=== PATIENT | female | born 1935 | race Native Hawaiian/Other Pacific Islander ===

== ENCOUNTER 2017-10-18 12:41 | Observation (INO) | payer OTHER ==
[2017-10-18] MEDS ORDERED: Sodium Chloride 0.9% 1,000 ML IV ONE (13:27)
[2017-10-18 14:40] LABS: BASO # 0.1 K/uL (0.0-0.2); BASO % 0.6 % (0.0-2.0); EOS # 0.1 K/uL (0.0-0.7); EOS % 0.9 % (0.0-4.0); HEMOGLOBIN 14.6 g/dL (11.0-16.0); LYMPH # 1.3 K/uL (1.0-4.3); LYMPH % 14.5 % (20.0-40.0); MEAN CELL VOLUME 98.5 fL (81.0-99.0); MEAN CORPUSCULAR HGB CONC 33.5 g/dL (33.0-37.0); MEAN PLATELET VOLUME 9.4 fL (7.2-11.7); MONO # 0.6 K/uL (0.0-0.8); MONO % 7.2 % (0.0-10.0); NEUT # 6.9 K/uL (1.8-7.0); NEUT % 76.8 % (50.0-75.0); RBC 4.41 Mil/uL (3.80-5.20); RED CELL DISTRIBUTION WIDTH 15.1 % (11.5-14.5); WHITE BLOOD COUNT 8.9 K/uL (4.8-10.8)
[2017-10-18] MEDS ORDERED: Sodium Chloride 0.9% 1,000 ML ONE (14:43)
[2017-10-18 14:46] LABS: VENOUS BLOOD GAS BASE EXCESS -1.8 mmol/L (0.0-2.0); VENOUS BLOOD GAS PCO2 42 mmHg (40-60); VENOUS BLOOD GAS PO2 29 mm/Hg (30-55); VENOUS BLOOD PH 7.36 (7.32-7.43)
[2017-10-18 14:47] LABS: INR 0.8; PROTHROMBIN TIME 9.3 SECONDS (9.7-12.2)
[2017-10-18 14:57] LABS: ALB/GLOB RATIO 1.2 (1.0-2.1); ALBUMIN 3.9 g/dL (3.5-5.0); ALT/SGPT 38 U/L (9-52); AST/SGOT 53 U/L (14-36); BLOOD UREA NITROGEN 33 mg/dL (7-17); CALCIUM 9.9 mg/dl (8.6-10.4); GFR AFRICAN-AMERICAN > 60; GFR NON-AFRICAN AMERICAN 53; MAGNESIUM 1.6 mg/dL (1.6-2.3)
--- NOTE | 2017-10-18 15:41 | C.PDOC ---
History Of Present Illness 82 year old female with a history of Diabetes-IDDM and HTN was sent to ED from PMD's office for evaluation of high blood sugar at approximately 400. Patient reports she has high blood sugar at home for the last week. Patient denies any fever, weakness, numbness, headache, dizziness, or any physical complaints at this time. Time Seen by Provider: 10/18/17 13:01 Chief Complaint (Nursing): High Blood Sugar History Per: Patient History/Exam Limitations: no limitations Onset/Duration Of Symptoms: Hrs Current Symptoms Are (Timing): Still Present Current Diabetic Medications: Insulin Associated Infectious Symptoms: denies: Vomiting, Diarrhea Recent travel outside of the [place]: No Past Medical History Reviewed: Historical Data, Nursing Documentation, Vital Signs Vital Signs: Last Vital Signs Temp 98 F 10/18/17 12:54 Pulse 90 10/18/17 15:34 Resp 13 10/18/17 15:34 BP 141/71 10/18/17 15:34 Pulse Ox 100 10/18/17 15:47 - Medical History PMH: HTN Family History: States: Unknown Family Hx - Social History Hx Alcohol Use: No Hx Substance Use: No - Immunization History Hx Tetanus Toxoid Vaccination: No Hx Influenza Vaccination: No Hx Pneumococcal Vaccination: No Review Of Systems Constitutional: Negative for: Fever, Chills Cardiovascular: Negative for: Chest Pain, Palpitations Respiratory: Negative for: Cough, Shortness of Breath Gastrointestinal: Negative for: Nausea, Vomiting, Abdominal Pain, Diarrhea Neurological: Negative for: Weakness, Numbness, Headache, Dizziness Physical Exam - Physical Exam Appears: Non-toxic, No Acute Distress Skin: Warm, Dry, No Rash Head: Atraumatic, Normacephalic, No Tenderness Eye(s): bilateral: Normal Inspection, PERRL, EOMI Oral Mucosa: Moist Neck: Supple Chest: Symmetrical, No Deformity Cardiovascular: Rhythm Regular, No Murmur Respiratory: No Rales, No Rhonchi, No Wheezing, Other (clear to auscultation bilaterally ) Gastrointestinal/Abdominal: Soft, No Tenderness, No Distention, No Guarding, No Rebound Extremity: Normal ROM, No Tenderness Neurological/Psych: Oriented x3 ED Course And Treatment - Laboratory Results Result Diagrams: 10/18/17 14:34 10/18/17 14:34 O2 Sat by Pulse Oximetry: 100 (RA) Pulse Ox Interpretation: Normal Progress Note: VBG, EKG, blood work, and labs were ordered. Patient was given IV fluids. Medical Decision Making Medical Decision Making: r/o dka 300: no e/o of dka. case discussed with pmd dr irwin. specifically requests admission of ivf, reports he discussed with dr hennessy. accepted for admission. Disposition - Disposition Disposition: HOSPITALIZED Disposition Time: 04:00 Condition: STABLE - Clinical Impression Clinical Impression: Hyperglycemia, Dehydration - Scribe Statement The provider has reviewed the documentation as recorded by the Scribe Dejah Jessica All medical record entries made by the Scribe were at my direction and personally dictated by me. I have reviewed the chart and agree that the record accurately reflects my personal performance of the history, physical exam, medical decision making, and the department course for this patient. I have also personally directed, reviewed, and agree with the discharge instructions and disposition. Decision To Admit - Pt Status Changed To: Hospital Disposition Of: Observation - . Bed Request Type: Telemetry Admitting Physician: Lulu Craig Patient Diagnosis: Hyperglycemia, Dehydration
--- NOTE | 2017-10-18 16:20 | CP.PCM.HP ---
<Francisco Nascimento - Last Filed: 10/18/17 16:55> History of Present Illness - History of Present Illness History of Present Illness: CC: sent by PMD HPI: [id number] PMHx DM, HTN, kidney infection and HLD was sent by PMD for hyperglycemia. Pt reports for the past week her morning fasting sugar is around 300-400. Pt said she is urinating more than usual but does not feel thirsty all the time or drinks more water than usual. Pt denied any pain, SOB, n/v, fever, chills, numbness, tingling. Pt reports previous A1c last month of 7. Pt said her last medication change was Amaryl 4 months ago. Pt said she is taking medication as prescribed. Pt also see ophthamologist and paving rammer. PMHx: as above PSHx: none FMHx: brother and sister have DM Social: denied ETOH, drugs or tobacco. Drinks 1 cup of coffee in the morning. 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 PMD: Danay Present on Admission - Present on Admission Any Indicators Present on Admission: Yes History of Uncontrolled Diabetes: Yes Review of Systems - Constitutional Constitutional: absent: Anorexia, Chills, Weakness - EENT Eyes: Blurred Vision (chronic) Ears: absent: Dizziness - Cardiovascular Cardiovascular: absent: Chest Pain, Dyspnea, Edema, Leg Edema, Leg Ulcers - Respiratory Respiratory: absent: Cough, Dyspnea - Gastrointestinal Gastrointestinal: absent: Abdominal Pain, Constipation, Dyspepsia, Nausea, Vomiting - Genitourinary Genitourinary: Urinary Frequency - Musculoskeletal Musculoskeletal: absent: Numbness - Integumentary Integumentary: absent: Dry Skin - Neurological Neurological: absent: Abnormal Hearing - Psychiatric Psychiatric: absent: Anxiety Past Patient History - Past Social History Smoking Status: Never Smoked - CARDIAC Hx Hypertension: Yes - ENDOCRINE/METABOLIC Hx Diabetes Mellitus Type 2: Yes - PSYCHIATRIC Hx Substance Use: No - SURGICAL HISTORY Hx Surgeries: No Meds Allergies/Adverse Reactions: Allergies Allergy/AdvReac Type Severity Reaction Status Date / Time No Known Allergies Allergy Verified 10/18/17 13:21 Physical Exam - Constitutional Appears: Non-toxic, No Acute Distress - Head Exam Head Exam: NORMAL INSPECTION, NORMOCEPHALIC - Eye Exam Eye Exam: Normal appearance Pupil Exam: NORMAL ACCOMODATION - ENT Exam ENT Exam: Mucous Membranes Moist - Respiratory Exam Respiratory Exam: Clear to Auscultation Bilateral, NORMAL BREATHING PATTERN. absent: Rhonchi, Wheezes - Cardiovascular Exam Cardiovascular Exam: REGULAR RHYTHM, +S1, +S2. absent: Gallop, Rubs - GI/Abdominal Exam GI & Abdominal Exam: Normal Bowel Sounds, Soft. absent: Tenderness - Extremities Exam Extremities exam: Negative for: pedal edema - Neurological Exam Neurological exam: Alert, Oriented x3 - Psychiatric Exam Psychiatric exam: Normal Mood - Skin Skin Exam: Intact Results - Vital Signs Recent Vital Signs: Last Vital Signs Temp 98 F 10/18/17 12:54 Pulse 90 10/18/17 15:34 Resp 13 10/18/17 15:34 BP 141/71 10/18/17 15:34 Pulse Ox 100 10/18/17 15:47 - Labs Result Diagrams: 10/18/17 14:34 10/18/17 14:34 Labs: Laboratory Results - last 24 hr 10/18/17 10/18/17 10/18/17 14:34 14:34 14:34 WBC 8.9 RBC 4.41 Hgb 14.6 Hct 43.4 MCV 98.5 MCH 33.0 H MCHC 33.5 RDW 15.1 H Plt Count 152 MPV 9.4 Neut % (Auto) 76.8 H Lymph % (Auto) 14.5 L [place] % (Auto) 7.2 Eos % (Auto) 0.9 Baso % (Auto) 0.6 Neut # 6.9 Lymph # 1.3 [place] # 0.6 Eos # 0.1 Baso # 0.1 PT 9.3 L INR 0.8 APTT 27 pO2 VBG pH VBG pCO2 VBG HCO3 VBG Total CO2 VBG O2 Sat (Calc) VBG Base Excess VBG Potassium Glucose Lactate Sodium 134 Potassium 3.9 Chloride 101 Carbon Dioxide 24 Anion Gap 14 BUN 33 H Creatinine 1.0 Est GFR ( Amer) > 60 Est GFR (Non-Af Amer) 53 Random Glucose 337 H Calcium 9.9 Magnesium 1.6 Total Bilirubin 0.6 AST 53 H ALT 38 Alkaline Phosphatase 96 Troponin I 0.0240 Total Protein 7.3 Albumin 3.9 Globulin 3.4 Albumin/Globulin Ratio 1.2 Venous Blood Potassium Serum Ketones Negative 10/18/17 14:42 WBC RBC Hgb Hct MCV MCH MCHC RDW Plt Count MPV Neut % (Auto) Lymph % (Auto) [place] % (Auto) Eos % (Auto) Baso % (Auto) Neut # Lymph # [place] # Eos # Baso # PT INR APTT pO2 29 L VBG pH 7.36 VBG pCO2 42 VBG HCO3 22.3 VBG Total CO2 25.0 VBG O2 Sat (Calc) 60.6 VBG Base Excess -1.8 L VBG Potassium 3.9 Glucose 358 H Lactate 1.3 Sodium 135.0 Potassium Chloride 105.0 Carbon Dioxide Anion Gap BUN Creatinine Est GFR ( Amer) Est GFR (Non-Af Amer) Random Glucose Calcium Magnesium Total Bilirubin AST ALT Alkaline Phosphatase Troponin I Total Protein Albumin Globulin Albumin/Globulin Ratio Venous Blood Potassium 3.9 Serum Ketones Assessment & Plan - Assessment and Plan (Free Text) Assessment: Hyperglycemia Pt takes Janumet 50-1000mg BID and Amaryl 4mg PO BID at home, confirmed with pharmacy ([facility] in [place]). Accucheck and RISS ACHS. Start Lantus 10U HS. Continue Janumet, will hold Amaryl. Salvage Mend Worker Dr. Chambers consulted, help appreciated. F/U A1c. HTN Continue HCTZ 12.5mg PO daily, Coreg 25mg PO BID, Amlopdipine 5mg PO daily. HLD Continue Lipitor 20mg PO daily. F/U lipid panel. Prophylactic measure SCD, Pepcid. <Sreekanth Alberto - Last Filed: 10/27/17 14:18> Results - Vital Signs Recent Vital Signs: Last Vital Signs Temp 97.4 F L 10/20/17 08:22 Pulse 80 10/20/17 08:22 Resp 20 10/20/17 08:22 BP 113/73 10/20/17 08:22 Pulse Ox 96 10/20/17 08:22 - Labs Result Diagrams: 10/20/17 08:27 10/20/17 08:27 Attending/Attestation - Attestation I have personally seen and examined this patient.: Yes I have fully participated in the care of the patient.: Yes I have reviewed all pertinent clinical information: Yes Notes (Text): Hyperglycemia with uncontrolled DM-2 Not in DKA add lantus consult Endocrine Dr. CHAMBERS
[2017-10-18 18:29] LABS: HDL CHOLESTEROL 55 mg/dL (30-70)
[2017-10-18 18:40] LABS: LDL CHOLESTEROL 85 mg/dL (0-129)
[2017-10-18 21:30] LABS: URINE BACTERIA FEW (<OCC); URINE BILIRUBIN NEGATIVE (NEGATIVE); URINE BLOOD NEGATIVE (NEGATIVE); URINE CLARITY Clear (Clear); URINE COLOR Yellow (YELLOW); URINE GLUCOSE (UA) 3+ mg/dL (Normal); URINE LEUKOCYTE ESTERASE TRACE Leu/uL (Negative); URINE NITRATE NEGATIVE (NEGATIVE); URINE PROTEIN NEGATIVE (NEGATIVE); URINE UROBILINOGEN NORMAL mg/dL (0.2-1.0)
[2017-10-18] MEDS ORDERED: (Lantus) Insulin Glargine, Recombinant SC SCH (22:00)
[2017-10-18] MEDS: Sodium Chloride 0.45% 1,000 ML IV SCH (23:28)
[2017-10-19 01:33] VITALS: RESP 20
--- NOTE | 2017-10-19 01:55 | CON ---
ENDOCRINOLOGY CONSULTATION LOCATION: Room #365B. HISTORY OF PRESENT ILLNESS: This is an 82-year-old female with known history of type 2 diabetes, on a combination of oral hypoglycemic therapy and was sent here by her primary physician because of recent marked hyperglycemic accelerations and glucose values in the 300 to 400 range and is now being referred for diabetic evaluation and management. PAST MEDICAL HISTORY: As mentioned above, history of type 2 diabetes, on a combination of Amaryl given as 4 mg b.i.d. and Janumet given as 51,000 b.i.d., history of hypertension and dyslipidemia. FAMILY HISTORY: Positive for diabetes and hypertension. SOCIAL HISTORY: The patient has a supportive family. No known substance use. REVIEW OF SYSTEMS: As mentioned above, admits to episodic bouts of dizziness and lightheadedness, worse in the last 2 to 3 days prior to admission with generalized body weakness, easy fatigability, tiredness and increasing hypersomnolence and lethargy. No chest pains, palpitations, or PNDs. The oral intake has been variable with occasional bouts of dyspepsia and nausea with vague upper abdominal pains. Also admits to marked polyuria, nocturia, and polydipsia on about a 5-pound or so weight loss. PHYSICAL EXAMINATION GENERAL: This is an female, in no apparent distress. VITAL SIGNS: Blood pressure of 140/80; pulse of 70 beats per minute and regular; temperature 98, respirations 20, height is 5 feet 4 inches and weight is 111 pounds. HEENT: Head is normocephalic. Eyes are anicteric with pink conjunctivae. Funduscopy not possible at this time. Ears, nose, and throat otherwise normal. NECK: Supple. Thyroid gland is normal in size. No carotid bruits or any cervical adenopathy. CARDIOPULMONARY: Adynamic pericardium. S1 and S2 is rapid and regular. LUNGS: Show scattered rhonchi. ABDOMEN: Flat and soft with positive bowel sounds. EXTREMITIES: No peripheral edema. Pulses are +2 bilaterally. LABORATORY DATA: The chemistries showed a BUN of 33, sodium 134, potassium 3.9, chloride 101, CO2 of 24, glucose 337, and creatinine 1.0. Her hemoglobin A1c is 9.8% and random glucose of 337 mg/dL. 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 PLAN OF MANAGEMENT: As discussed, the patient's staff will start her on a low dose basal and bolus insulin regimen and give NovoLog at 6 units subcu t.i.d. before meals to start tomorrow morning as ordered. We will also increase the Lantus to 12 units subcu at bedtime daily to start tonight. We will modify the coverage scale to obviate hypoglycemia and detailed orders have been given. We will discontinue her metformin at this time, especially with advanced age of the patient and also impaired GFR with seemingly normal creatinine levels as noted. Moreover, with weight loss and undernutrition status of the patient, metformin will contribute to progressively worsening weight loss thereof. We will obtain serial chemistries and supplement accordingly as needed. We will also initiate IV hydration because of the presence of prerenal azotemia and expected supervening increased osmotic diuresis from the marked hyperglycemic accelerations thereof. We will follow. Ingrid Gauthier MD
[2017-10-19] MEDS ORDERED: (Novolog) Insulin Aspart, Recombinant 100 u/ml 10 ml vial SC SCH (07:30)
[2017-10-19] MEDS: (Novolog) Insulin Aspart, Recombinant 100 u/ml 10 ml vial SC SCH ×5 (07:51→21:28)
[2017-10-19 08:39] LABS: BASO # 0.1 K/uL (0.0-0.2); BASO % 0.7 % (0.0-2.0); EOS # 0.1 K/uL (0.0-0.7); EOS % 1.3 % (0.0-4.0); LYMPH # 1.6 K/uL (1.0-4.3); LYMPH % 18.4 % (20.0-40.0); MEAN CELL VOLUME 99.1 fL (81.0-99.0); MEAN CORPUSCULAR HEMOGLOBIN 33.1 pg (27.0-31.0); MEAN CORPUSCULAR HGB CONC 33.4 g/dL (33.0-37.0); MEAN PLATELET VOLUME 9.2 fL (7.2-11.7); MONO # 0.8 K/uL (0.0-0.8); MONO % 9.1 % (0.0-10.0); NEUT # 6.1 K/uL (1.8-7.0); NEUT % 70.5 % (50.0-75.0); NRBC % 0.1 % (0.0-2.0); RBC 4.24 Mil/uL (3.80-5.20); RED CELL DISTRIBUTION WIDTH 14.9 % (11.5-14.5); WHITE BLOOD COUNT 8.6 K/uL (4.8-10.8)
[2017-10-19 09:18] LABS: ALB/GLOB RATIO 1.6 (1.0-2.1); ALBUMIN 3.3 g/dL (3.5-5.0); ALT/SGPT 39 U/L (9-52); AST/SGOT 32 U/L (14-36); BLOOD UREA NITROGEN 21 mg/dL (7-17); CALCIUM 9.1 mg/dl (8.6-10.4); GFR AFRICAN-AMERICAN > 60; GFR NON-AFRICAN AMERICAN > 60
[2017-10-19] MEDS ORDERED: Potassium Chloride 20 mEq ER Tab PO ONE (10:07)
--- NOTE | 2017-10-19 10:10 | CP.PCM.PN ---
Objective - Vital Signs/Intake and Output Vital Signs (last 24 hours): Temp Pulse Resp BP Pulse Ox 98.1 F 68 20 129/68 98 10/19/17 07:46 10/19/17 07:46 10/19/17 07:46 10/19/17 07:46 10/19/17 07:46 Intake and Output: 10/19/17 10/19/17 06:59 18:59 Intake Total 760 Balance 760 - Medications Medications: Current Medications Carvedilol (Coreg) 25 mg PO BID [facility] Last Admin: 10/18/17 18:46 Dose: 25 mg Enoxaparin Sodium (Lovenox) 40 mg SC DAILY [facility] Famotidine (Pepcid) 20 mg PO BID [facility] Last Admin: 10/18/17 18:47 Dose: 20 mg Hydrochlorothiazide (Microzide) 12.5 mg PO DAILY [facility] Sodium Chloride (Sodium Chloride 0.45%) 1,000 mls @ 80 mls/hr IV .[id number] [facility] Last Admin: 10/18/17 23:28 Dose: 80 mls/hr Insulin Aspart (Novolog) 0 unit SC ACHS [facility] PRN Reason: Protocol Last Admin: 10/19/17 07:51 Dose: Not Given Insulin Aspart (Novolog) 6 unit SC AC [facility] Last Admin: 10/19/17 07:51 Dose: Not Given Insulin Glargine (Lantus) 12 unit SC HS [facility] Rosuvastatin Calcium (Crestor) 10 mg PO HS [facility] Last Admin: 10/18/17 22:35 Dose: 10 mg Sitagliptin Phosphate (Januvia) 50 mg PO DAILY [facility] - Labs Labs: 10/19/17 08:15 10/19/17 08:15 PT 9.3 SECONDS (9.7-12.2) L 10/18/17 14:34 INR 0.8 10/18/17 14:34 APTT 27 SECONDS (21-34) 10/18/17 14:34
[2017-10-19] MEDS: Enoxaparin 40 mg Syringe SC SCH (11:02)
--- NOTE | 2017-10-19 11:41 | CP.PCM.DIS ---
Provider - Provider Date of Admission: 10/18/17 15:37 Attending physician: Lulu Craig MD Hospital Course - Lab Results Lab Results: Most Recent Lab Values WBC 8.6 K/uL (4.8-10.8) 10/19/17 08:15 RBC 4.24 Mil/uL (3.80-5.20) 10/19/17 08:15 Hgb 14.0 g/dL (11.0-16.0) 10/19/17 08:15 Hct 42.1 % (34.0-47.0) 10/19/17 08:15 MCV 99.1 fL (81.0-99.0) H 10/19/17 08:15 MCH 33.1 pg (27.0-31.0) H 10/19/17 08:15 MCHC 33.4 g/dL (33.0-37.0) 10/19/17 08:15 RDW 14.9 % (11.5-14.5) H 10/19/17 08:15 Plt Count 161 K/uL (130-400) 10/19/17 08:15 MPV 9.2 fL (7.2-11.7) 10/19/17 08:15 Neut % (Auto) 70.5 % (50.0-75.0) 10/19/17 08:15 Lymph % (Auto) 18.4 % (20.0-40.0) L 10/19/17 08:15 [place] % (Auto) 9.1 % (0.0-10.0) 10/19/17 08:15 Eos % (Auto) 1.3 % (0.0-4.0) 10/19/17 08:15 Baso % (Auto) 0.7 % (0.0-2.0) 10/19/17 08:15 Neut # 6.1 K/uL (1.8-7.0) 10/19/17 08:15 Lymph # 1.6 K/uL (1.0-4.3) 10/19/17 08:15 [place] # 0.8 K/uL (0.0-0.8) 10/19/17 08:15 Eos # 0.1 K/uL (0.0-0.7) 10/19/17 08:15 Baso # 0.1 K/uL (0.0-0.2) 10/19/17 08:15 PT 9.3 SECONDS (9.7-12.2) L 10/18/17 14:34 INR 0.8 10/18/17 14:34 APTT 27 SECONDS (21-34) 10/18/17 14:34 pO2 29 mm/Hg (30-55) L 10/18/17 14:42 VBG pH 7.36 (7.32-7.43) 10/18/17 14:42 VBG pCO2 42 mmHg (40-60) 10/18/17 14:42 VBG HCO3 22.3 mmol/L 10/18/17 14:42 VBG Total CO2 25.0 mmol/L (22-28) 10/18/17 14:42 VBG O2 Sat (Calc) 60.6 % (40-65) 10/18/17 14:42 VBG Base Excess -1.8 mmol/L (0.0-2.0) L 10/18/17 14:42 VBG Potassium 3.9 mmol/L (3.6-5.2) 10/18/17 14:42 Sodium 135.0 mmol/l (132-148) 10/18/17 14:42 Chloride 105.0 mmol/L (98-107) 10/18/17 14:42 Glucose 358 mg/dl (65-105) H 10/18/17 14:42 Lactate 1.3 mmol/L (0.7-2.1) 10/18/17 14:42 Sodium 137 mmol/L (132-148) 10/19/17 08:15 Potassium 3.3 mmol/L (3.6-5.2) L 10/19/17 08:15 Chloride 107 mmol/L (98-107) 10/19/17 08:15 Carbon Dioxide 21 mmol/L (22-30) L 10/19/17 08:15 Anion Gap 12 (10-20) 10/19/17 08:15 BUN 21 mg/dL (7-17) H 10/19/17 08:15 Creatinine 0.9 mg/dL (0.7-1.2) 10/19/17 08:15 Est GFR ( Amer) > 60 10/19/17 08:15 Est GFR (Non-Af Amer) > 60 10/19/17 08:15 POC Glucose (mg/dL) 83 mg/dL (65-110) 10/19/17 07:22 Random Glucose 79 mg/dL (65-105) 10/19/17 08:15 Hemoglobin A1c 9.8 % (4.2-6.5) H 10/18/17 18:12 Calcium 9.1 mg/dl (8.6-10.4) 10/19/17 08:15 Magnesium 1.6 mg/dL (1.6-2.3) 10/18/17 14:34 Total Bilirubin 0.7 mg/dL (0.2-1.3) 10/19/17 08:15 AST 32 U/L (14-36) 10/19/17 08:15 ALT 39 U/L (9-52) 10/19/17 08:15 Alkaline Phosphatase 56 U/L (38-126) 10/19/17 08:15 Troponin I 0.0240 ng/mL (0.00-0.120) 10/18/17 14:34 Total Protein 5.5 g/dL (6.3-8.3) L 10/19/17 08:15 Albumin 3.3 g/dL (3.5-5.0) L 10/19/17 08:15 Globulin 2.2 gm/dL (2.2-3.9) 10/19/17 08:15 Albumin/Globulin Ratio 1.6 (1.0-2.1) 10/19/17 08:15 Triglycerides 151 mg/dL (0-149) H 10/18/17 18:12 Cholesterol 156 mg/dL (0-199) 10/18/17 18:12 LDL Cholesterol Direct 85 mg/dL (0-129) 10/18/17 18:12 HDL Cholesterol 55 mg/dL (30-70) 10/18/17 18:12 Venous Blood Potassium 3.9 mmol/L (3.6-5.2) 10/18/17 14:42 Urine Color Yellow (YELLOW) 10/18/17 21:07 Urine Clarity Clear (Clear) 10/18/17 21:07 Urine pH 6.0 (5.0-8.0) 10/18/17 21:07 Ur Specific [place] 1.007 (1.003-1.030) 10/18/17 21:07 Urine Protein Negative mg/dL (NEGATIVE) 10/18/17 21:07 Urine Glucose (UA) 3+ mg/dL (Normal) H 10/18/17 21:07 Urine Ketones Trace mg/dL (NEGATIVE) 10/18/17 21:07 Urine Blood Negative (NEGATIVE) 10/18/17 21:07 Urine Nitrate Negative (NEGATIVE) 10/18/17 21:07 Urine Bilirubin Negative (NEGATIVE) 10/18/17 21:07 Urine Urobilinogen Normal mg/dL (0.2-1.0) 10/18/17 21:07 Ur Leukocyte Esterase Trace Kranthi/uL (Negative) 10/18/17 21:07 Urine WBC (Auto) 7 /hpf (0-5) H 10/18/17 21:07 Urine RBC (Auto) < 1 /hpf (0-3) 10/18/17 21:07 Urine Bacteria Few (<OCC) H 10/18/17 21:07 Serum Ketones Negative (NEGATIVE) 10/18/17 14:34 Discharge Exam - Head Exam Head Exam: NORMAL INSPECTION, NORMOCEPHALIC Discharge Plan - Follow Up Plan Condition: STABLE Disposition: HOME/ ROUTINE
[2017-10-19] MEDS: Sodium Chloride 0.45% 1,000 ML IV SCH (13:53)
--- NOTE | 2017-10-19 17:59 | CP.PCM.PN ---
<TacomaKizzy akbar Apolinar - Last Filed: 10/19/17 18:11> Subjective - Date & Time of Evaluation Date of Evaluation: 10/19/17 Time of Evaluation: 08:00 - Subjective Subjective: Medicine note (PGY-1)----> Dr. Torres's service Patient was seen and examined at bedside. Patient reports that she is doing well with no complaints. Patient denies chest nausea, chest pain, sob, palpitations, dizziness, abdominal pain, numbness or tingling. Objective - Vital Signs/Intake and Output Vital Signs (last 24 hours): Temp Pulse Resp BP Pulse Ox 98.1 F 77 20 112/70 99 10/19/17 15:00 10/19/17 15:00 10/19/17 15:00 10/19/17 17:42 10/19/17 15:00 Intake and Output: 10/19/17 10/19/17 06:59 18:59 Intake Total 760 640 Balance 760 640 - Medications Medications: Current Medications Carvedilol (Coreg) 25 mg PO BID [facility] Last Admin: 10/19/17 17:42 Dose: 25 mg Enoxaparin Sodium (Lovenox) 40 mg SC DAILY [facility] Last Admin: 10/19/17 11:02 Dose: 40 mg Famotidine (Pepcid) 20 mg PO BID [facility] Last Admin: 10/19/17 17:42 Dose: 20 mg Hydrochlorothiazide (Microzide) 12.5 mg PO DAILY [facility] Last Admin: 10/19/17 11:03 Dose: 12.5 mg Sodium Chloride (Sodium Chloride 0.45%) 1,000 mls @ 80 mls/hr IV .[id number] [facility] Last Admin: 10/19/17 13:53 Dose: Not Given Insulin Aspart (Novolog) 0 unit SC [facility] PRN Reason: Protocol Last Admin: 10/19/17 17:07 Dose: Not Given Insulin Glargine (Lantus) 12 unit SC [facility] Rosuvastatin Calcium (Crestor) 10 mg PO HS [facility] Last Admin: 10/18/17 22:35 Dose: 10 mg Sitagliptin Phosphate (Januvia) 50 mg PO DAILY [facility] Last Admin: 10/19/17 11:03 Dose: 50 mg - Labs Labs: 10/19/17 08:15 11/22/17 08:15 PT 9.3 SECONDS (9.7-12.2) L 10/18/17 14:34 INR 0.8 10/18/17 14:34 APTT 27 SECONDS (21-34) 10/18/17 14:34 - Constitutional Appears: Well, No Acute Distress - Head Exam Head Exam: ATRAUMATIC, NORMAL INSPECTION - Eye Exam Eye Exam: EOMI, Normal appearance - ENT Exam ENT Exam: Mucous Membranes Moist - Respiratory Exam Respiratory Exam: Clear to Ausculation Bilateral, NORMAL BREATHING PATTERN - Cardiovascular Exam Cardiovascular Exam: REGULAR RHYTHM, +S1, +S2 - GI/Abdominal Exam GI & Abdominal Exam: Soft, Normal Bowel Sounds - Extremities Exam Extremities Exam: Normal Inspection. absent: Calf Tenderness, Pedal Edema - Neurological Exam Neurological Exam: Alert, Awake, Oriented x3 - Psychiatric Exam Psychiatric exam: Normal Affect, Normal Mood - Skin Skin Exam: Normal Color Assessment and Plan (1) Hyperglycemia Assessment & Plan: Side Seam Tender, Dr. Gauthier consulted---> Help appreciated * Management as per recommedation * Recommendation: Lantus 12 units HS and Novolog 6 units TID ( with meals) * Diesel Crane Operator referral Labs: HgbA1C: 9.8 Medications/Management: * Lantus 12 units HS * Novolog 6 units TID ( with meals) * Januvia 50mg PO daily * Accuchecks Status: Acute (2) History of hypertension Assessment & Plan: Continue home medication: * Hydrocholorothiazide 12.5mg PO daily * Coreg 25mg PO daily Status: Acute (3) History of hyperlipidemia Assessment & Plan: Crestor 10mg PO HS Status: Acute (4) Prophylactic measure Assessment & Plan: GI: Pepcid 20mg PO daily DVT: Lovenox 70mg SC Q12H, SCDs PT and OT: Unsteady gait Disposition: Patient was suppose to be discharge home today but unable to appropriately educate patient on insulin, need to be further educated on insulin use Status: Acute <Stephanie Torres V - Last Filed: 10/19/17 18:44> Objective - Vital Signs/Intake and Output Vital Signs (last 24 hours): Temp Pulse Resp BP Pulse Ox 98.1 F 77 20 112/70 99 10/19/17 15:00 10/19/17 15:00 10/19/17 15:00 10/19/17 17:42 10/19/17 15:00 Intake and Output: 10/19/17 10/19/17 06:59 18:59 Intake Total 760 640 Balance 760 640 - Medications Medications: Current Medications Carvedilol (Coreg) 25 mg PO BID [facility] Last Admin: 10/19/17 17:42 Dose: 25 mg Enoxaparin Sodium (Lovenox) 40 mg SC DAILY [facility] Last Admin: 10/19/17 11:02 Dose: 40 mg Famotidine (Pepcid) 20 mg PO BID [facility] Last Admin: 10/19/17 17:42 Dose: 20 mg Hydrochlorothiazide (Microzide) 12.5 mg PO DAILY [facility] Last Admin: 10/19/17 11:03 Dose: 12.5 mg Insulin Aspart (Novolog) 0 unit SC [facility] PRN Reason: Protocol Last Admin: 10/19/17 17:07 Dose: Not Given Insulin Glargine (Lantus) 12 unit SC [facility] Rosuvastatin Calcium (Crestor) 10 mg PO [facility] Last Admin: 10/18/17 22:35 Dose: 10 mg Sitagliptin Phosphate (Januvia) 50 mg PO DAILY [facility] Last Admin: 10/19/17 11:03 Dose: 50 mg - Labs Labs: 10/19/17 08:15 10/19/17 08:15 PT 9.3 SECONDS (9.7-12.2) L 10/18/17 14:34 INR 0.8 10/18/17 14:34 APTT 27 SECONDS (21-34) 10/18/17 14:34 Attending/Attestation - Attestation I have personally seen and examined this patient.: Yes I have fully participated in the care of the patient.: Yes I have reviewed all pertinent clinical information, including history, physical exam and plan: Yes Notes (Text): Patient seen, examined and case discussed with day-time resident. patient seen this morning. Patient denies acute complaints. Patient was evaluated by endocrinology. Patient is uncontrolled diabetic for 30 + years. a1c: 9.8 necessitating insulin therapy. Patient started on Lantus and Novolog insulin premeals. Patient appears well hydrated at bedside. Metformin d/ c by endocrinology. Patient placed for discharge today under observation, given she needs insulin therapy. Patient was adjusted from insulin vials to insulin pens to assisting in help patient. However, with teaching by nurse, report she cannot see well out of her left eye and nursing is not comfortable discharging patient. Patient is her own primary-client care representative. Resident attempted to reach out to patient's sister, RN by profession, but does not want to help her sister. Resident working with case management. Patient changed to inpatient status to check for assessment in activity and severity of functional impairment in terms of ADLs; PT and OT eval placed awaiting assessment. Teaching PRN placed in the EMR as well to assist patient in teaching. Will place for adult educator; unclear if she is available given this Assessment/Plan 1) Uncontrolled diabetic, requiring insulin * Pt takes Janumet 50-1000mg BID and Amaryl 4mg PO BID at home, confirmed with pharmacy ([facility] in [place]) on admission * Patient evaluated by endocrinology; d/c meformin. c/w Januvia. patient started on Lantus 10 units subHS and Novolog premeal. * Nursing attempted to provide teaching to patient--However not comfortable. Attempted to switch from insulin vials to pens to make it easier for the patient. * hgba1c: 9.8 * personal development educator referral * Diabetic teaching by nursing staff * Lantus 12 units subqHS 2) HTN * Continue HCTZ 12.5mg PO daily, Coreg 25mg PO BID, Amlopdipine 5mg PO daily. 3) HLD * Continue Lipitor 20mg PO dqHS 4) Prophylactic measure * SCD, Pepcid, lovenox 40mg subdaily * PT/OT eval
[2017-10-19] MEDS ORDERED: LANTUS SOLOSTAR SC SCH (22:00)
[2017-10-19] MEDS ORDERED: (Lantus) Insulin Glargine, Recombinant SC SCH (22:00)
[2017-10-19] MEDS ORDERED: LANTUS SOLOSTAR PEN SC SCH (22:00)
--- NOTE | 2017-10-20 00:55 | PN ---
ENDOCRINOLOGY FOLLOWUP NOTE DATE: LOCATION: Room 365. SUBJECTIVE: This is an 82-year-old female with recent uncontrolled type 2 insulin-requiring diabetes, now being followed closely for metabolic management. She presented here with mild hyperglycemic acceleration as noted by outpatient followup with her medical doctor as noted. Her oral intake has been variable but improved otherwise. Her glucose values have ranged from 210 to 287 mg/dL. Her latest chemistries showed a BUN of 21, sodium 137, potassium 3.3, chloride 107, CO2 of 21, glucose 79, and creatinine is 0.9. So at this time, we will modify her current insulin regimen and continue the NovoLog given at 6 units subcutaneous t.i.d. before meals as ordered. We will continue also the basal insulin given as Levemir 14 units subcutaneous at bedtime daily as ordered. We will titrate incrementally as indicated to optimize metabolic control. We will also add Januvia given as 50 mg once daily before breakfast as ordered. We will titrate incrementally as indicated to optimize metabolic control. We will initiate diabetic education to include insulin self-administration with the patient prior to the eventual plan for discharge. We will obtain serial chemistries and supplement accordingly as needed. We will follow. Ingrid Gauthier MD
--- NOTE | 2017-10-20 07:27 | CP.PCM.PN ---
Objective - Vital Signs/Intake and Output Vital Signs (last 24 hours): Temp Pulse Resp BP Pulse Ox 97.8 F 69 20 117/71 98 10/20/17 00:00 10/20/17 00:00 10/20/17 00:00 10/20/17 00:00 10/20/17 00:00 Intake and Output: 10/20/17 10/20/17 06:59 18:59 Intake Total 200 Balance 200 - Medications Medications: Current Medications Carvedilol (Coreg) 25 mg PO BID [facility] Last Admin: 10/19/17 17:42 Dose: 25 mg Enoxaparin Sodium (Lovenox) 40 mg SC DAILY [facility] Last Admin: 10/19/17 11:02 Dose: 40 mg Famotidine (Pepcid) 20 mg PO BID [facility] Last Admin: 10/19/17 17:42 Dose: 20 mg Home Med (Patient's Own Injectable) 6 unit SC ACTID REPLACED BY [facility] Home Med (Patient's Own Injectable) 14 unit SC [facility] Last Admin: 10/19/17 22:07 Dose: 14 unit Hydrochlorothiazide (Microzide) 12.5 mg PO DAILY [facility] Last Admin: 10/19/17 11:03 Dose: 12.5 mg Insulin Aspart (Novolog) 0 unit SC [facility] REPLACED BY [facility] PRN Reason: Protocol Last Admin: 10/19/17 21:28 Dose: Not Given Rosuvastatin Calcium (Crestor) 10 mg PO [facility] Last Admin: 10/19/17 21:26 Dose: 10 mg Sitagliptin Phosphate (Januvia) 50 mg PO DAILY [facility] Last Admin: 10/19/17 11:03 Dose: 50 mg - Labs Labs: 10/19/17 08:15 10/19/17 08:15 PT 9.3 SECONDS (9.7-12.2) L 10/18/17 14:34 INR 0.8 10/18/17 14:34 APTT 27 SECONDS (21-34) 10/18/17 14:34
[2017-10-20] MEDS ORDERED: HUMALOG KWIKPEN SC SCH (07:30)
[2017-10-20] MEDS: (Novolog) Insulin Aspart, Recombinant 100 u/ml 10 ml vial SC SCH (07:57)
[2017-10-20 08:24] VITALS: BP 113/73; PULSE 80; TEMP 97.4; O2SAT 96
[2017-10-20 08:35] LABS: EOS # 0.1 K/uL (0.0-0.7); MONO # 0.8 K/uL (0.0-0.8); NRBC % 0.2 % (0.0-2.0)
[2017-10-20 08:44] LABS: BASO % 0.2 % (0.0-2.0); EOS % 0.9 % (0.0-4.0); HEMOGLOBIN 15.4 g/dL (11.0-16.0); LYMPH # 1.2 K/uL (1.0-4.3); LYMPH % 14.3 % (20.0-40.0); MEAN CELL VOLUME 98.2 fL (81.0-99.0); MEAN CORPUSCULAR HEMOGLOBIN 33.7 pg (27.0-31.0); MEAN CORPUSCULAR HGB CONC 34.3 g/dL (33.0-37.0); MEAN PLATELET VOLUME 9.5 fL (7.2-11.7); MONO % 9.5 % (0.0-10.0); NEUT # 6.2 K/uL (1.8-7.0); NEUT % 75.1 % (50.0-75.0); RBC 4.58 Mil/uL (3.80-5.20); WHITE BLOOD COUNT 8.3 K/uL (4.8-10.8)
[2017-10-20 08:57] LABS: ALB/GLOB RATIO 1.6 (1.0-2.1); ALBUMIN 3.7 g/dL (3.5-5.0); ALT/SGPT 39 U/L (9-52); AST/SGOT 20 U/L (14-36); BLOOD UREA NITROGEN 25 mg/dL (7-17); CALCIUM 9.6 mg/dl (8.6-10.4); GFR AFRICAN-AMERICAN > 60; GFR NON-AFRICAN AMERICAN > 60; MAGNESIUM 1.4 mg/dL (1.6-2.3)
[2017-10-20] MEDS ORDERED: (Novolog) Insulin Aspart, Recombinant 100 u/ml 10 ml vial SC SCH (09:32)
--- NOTE | 2017-10-20 10:37 | CP.PCM.DIS ---
<Stephanie Torres V - Last Filed: 10/20/17 10:51> Provider - Provider Date of Admission: 10/19/17 15:37 Attending physician: Stephanie Torres, [facility] Course - Lab Results Lab Results: Most Recent Lab Values WBC 8.3 K/uL (4.8-10.8) 10/20/17 08:27 RBC 4.58 Mil/uL (3.80-5.20) 10/20/17 08:27 Hgb 15.4 g/dL (11.0-16.0) 10/20/17 08:27 Hct 44.9 % (34.0-47.0) 10/20/17 08:27 MCV 98.2 fL (81.0-99.0) 10/20/17 08:27 MCH 33.7 pg (27.0-31.0) H 10/20/17 08:27 MCHC 34.3 g/dL (33.0-37.0) 10/20/17 08:27 RDW 15.0 % (11.5-14.5) H 10/20/17 08:27 Plt Count 157 K/uL (130-400) 10/20/17 08:27 MPV 9.5 fL (7.2-11.7) 10/20/17 08:27 Neut % (Auto) 75.1 % (50.0-75.0) H 10/20/17 08:27 Lymph % (Auto) 14.3 % (20.0-40.0) L 10/20/17 08:27 [place] % (Auto) 9.5 % (0.0-10.0) 10/20/17 08:27 Eos % (Auto) 0.9 % (0.0-4.0) 10/20/17 08:27 Baso % (Auto) 0.2 % (0.0-2.0) 10/20/17 08:27 Neut # 6.2 K/uL (1.8-7.0) 10/20/17 08:27 Lymph # 1.2 K/uL (1.0-4.3) 10/20/17 08:27 [place] # 0.8 K/uL (0.0-0.8) 10/20/17 08:27 Eos # 0.1 K/uL (0.0-0.7) 10/20/17 08:27 Baso # 0.0 K/uL (0.0-0.2) 10/20/17 08:27 PT 9.3 SECONDS (9.7-12.2) L 10/18/17 14:34 INR 0.8 10/18/17 14:34 APTT 27 SECONDS (21-34) 10/18/17 14:34 pO2 29 mm/Hg (30-55) L 10/18/17 14:42 VBG pH 7.36 (7.32-7.43) 10/18/17 14:42 VBG pCO2 42 mmHg (40-60) 10/18/17 14:42 VBG HCO3 22.3 mmol/L 10/18/17 14:42 VBG Total CO2 25.0 mmol/L (22-28) 10/18/17 14:42 VBG O2 Sat (Calc) 60.6 % (40-65) 10/18/17 14:42 VBG Base Excess -1.8 mmol/L (0.0-2.0) L 10/18/17 14:42 VBG Potassium 3.9 mmol/L (3.6-5.2) 10/18/17 14:42 Sodium 135.0 mmol/l (132-148) 10/18/17 14:42 Chloride 105.0 mmol/L (98-107) 10/18/17 14:42 Glucose 358 mg/dl (65-105) H 10/18/17 14:42 Lactate 1.3 mmol/L (0.7-2.1) 10/18/17 14:42 Sodium 136 mmol/L (132-148) 10/20/17 08:27 Potassium 4.1 mmol/L (3.6-5.2) 10/20/17 08:27 Chloride 103 mmol/L (98-107) 10/20/17 08:27 Carbon Dioxide 23 mmol/L (22-30) 10/20/17 08:27 Anion Gap 14 (10-20) 10/20/17 08:27 BUN 25 mg/dL (7-17) H 10/20/17 08:27 Creatinine 0.8 mg/dL (0.7-1.2) 10/20/17 08:27 Est GFR ( Amer) > 60 10/20/17 08:27 Est GFR (Non-Af Amer) > 60 10/20/17 08:27 POC Glucose (mg/dL) 224 mg/dL (65-110) H 10/20/17 07:00 Random Glucose 280 mg/dL (65-105) H 10/20/17 08:27 Hemoglobin A1c 9.8 % (4.2-6.5) H 10/18/17 18:12 Calcium 9.6 mg/dl (8.6-10.4) 10/20/17 08:27 Phosphorus 3.1 mg/dL (2.5-4.5) 10/20/17 08:27 Magnesium 1.4 mg/dL (1.6-2.3) L 10/20/17 08:27 Total Bilirubin 0.9 mg/dL (0.2-1.3) 10/20/17 08:27 AST 20 U/L (14-36) 10/20/17 08:27 ALT 39 U/L (9-52) 10/20/17 08:27 Alkaline Phosphatase 65 U/L (38-126) 10/20/17 08:27 Troponin I 0.0240 ng/mL (0.00-0.120) 10/18/17 14:34 Total Protein 6.1 g/dL (6.3-8.3) L 10/20/17 08:27 Albumin 3.7 g/dL (3.5-5.0) 10/20/17 08:27 Globulin 2.4 gm/dL (2.2-3.9) 10/20/17 08:27 Albumin/Globulin Ratio 1.6 (1.0-2.1) 10/20/17 08:27 Triglycerides 151 mg/dL (0-149) H 10/18/17 18:12 Cholesterol 156 mg/dL (0-199) 10/18/17 18:12 LDL Cholesterol Direct 85 mg/dL (0-129) 10/18/17 18:12 HDL Cholesterol 55 mg/dL (30-70) 10/18/17 18:12 Venous Blood Potassium 3.9 mmol/L (3.6-5.2) 10/18/17 14:42 Urine Color Yellow (YELLOW) 10/18/17 21:07 Urine Clarity Clear (Clear) 10/18/17 21:07 Urine pH 6.0 (5.0-8.0) 10/18/17 21:07 Ur Specific [place] 1.007 (1.003-1.030) 10/18/17 21:07 Urine Protein Negative mg/dL (NEGATIVE) 10/18/17 21:07 Urine Glucose (UA) 3+ mg/dL (Normal) H 10/18/17 21:07 Urine Ketones Trace mg/dL (NEGATIVE) 10/18/17 21:07 Urine Blood Negative (NEGATIVE) 10/18/17 21:07 Urine Nitrate Negative (NEGATIVE) 10/18/17 21:07 Urine Bilirubin Negative (NEGATIVE) 10/18/17 21:07 Urine Urobilinogen Normal mg/dL (0.2-1.0) 10/18/17 21:07 Ur Leukocyte Esterase Trace Kranthi/uL (Negative) 10/18/17 21:07 Urine WBC (Auto) 7 /hpf (0-5) H 10/18/17 21:07 Urine RBC (Auto) < 1 /hpf (0-3) 10/18/17 21:07 Urine Bacteria Few (<OCC) H 10/18/17 21:07 Serum Ketones Negative (NEGATIVE) 10/18/17 14:34 Discharge Plan - Discharge Medications Prescriptions: hydroCHLOROthiazide [Microzide] 12.5 mg PO DAILY 30 Days #30 cap Insulin Aspart, Recombinant [Novolog] 6 unit SC AC #1 vial Insulin Glargine, Recombina [Lantus] 12 unit SC HS #1 vial SITagliptin [Januvia] 50 mg PO DAILY 30 Days #30 tab - Follow Up Plan Condition: STABLE Disposition: HOME/ ROUTINE Instructions: Hydrochlorothiazide (By mouth), Insulin Aspart, Recombinant (By injection), Sitagliptin (By mouth), Insulin Glargine (By injection), Dehydration (DC), Diabetic Hyperglycemia (DC), Diabetic Hyperglycemia (GEN) Additional Instructions: Please discharge patient home as per Please start the following new medications: 1. Lantus 12 units HS, please use at night 2. Novolog 6 units before each meals, meaning before breakfast, lunch and dinner 3. Hydrocholorthiazide 12.5mg PO daily 4. Januvia 50mg PO daily Please check your blood sugar per day or before administering your hyperglycemic medications Please stop the following medication: 1. Metformin 2. Glimipride Please resume all home medications as prescribed Please f/u with position classification specialist, Dr. Gauthier or your preferred position classification specialist in 1- 2 weeks Please f/u with your primary care physician, Dr. Mariposa Canada in 1 week for follow up care Please return to the hospital with symptoms of nausea, vomiting, hyperglycemia seizures, palpitations, chest pain and SOB Patient will be instructed on how to insulin by nursing staff before discharge. Patient is medically stable for discharge. Patient confirms at bedside she is able to self-administer insulin to herself. She reports she has taken humalog pen in the past and demonstrates with me at bedside. Patient to follow-up with Dr. Marah Canada within one week of discharge. Prescription: 1) Lantus pen 2) Novolog pen 3) Januvia Stop prescription: Stop Janumet. Referrals: Ingrid Gauthier MD [Medical Doctor] - Attending/Attestation - Attestation I have personally seen and examined this patient.: Yes I have fully participated in the care of the patient.: Yes I have reviewed all pertinent clinical information, including history, physical exam and plan: Yes Notes (Text): Patient seen, examined and case discussed with day-time resident. patient seen this morning. Patient denies acute complaints. Patient wondering why she did not leave yesterday. I explained to the patient at bedside there was concern from nursing staff that she cannot given herself insulin through a pen. patient reports she can; she has blurry vision from long-standing diabetic retinopathy and needs the instructions written down. Patient shows me she can pinch her fat to be able to give herself insulin. She reports both her sister and [id number] are RNs and can help her. Discussed with nursing, patient is stable for discharge today. Discuss with nurse, Mariluz, who spoke with Jack Prizer for patient's PMD, that patient needed diabetic teaching. Physical therapy: patient does not need physical therapy. patient seen walking well with PT. Prescriptions upon discharge: 1) Novolog pen 6 units subqAC (1 pen) 2) Lantus pen 12 units (subHQs) (1 pen) 3) Januvia 50mg PO once a daily (30 tabs/no refills) Discontinue: 1) Metformin in Janumet medication; given patient's advanced age per endocrinology. Patient to resume HCTZ, Coreg, Atorvastatin, and Norvasc. Clarified medical reconciliation on discharge. Patient recommended to follow-up with PMD within one week discharge with sugar diary to help adjust insulin. This is a summary of patient's hospitalization. Please see EMR for further details at bedside. Discharge Diagnoses: 1) Uncontrolled diabetic, requiring insulin * Pt takes Janumet 50-1000mg BID and Amaryl 4mg PO BID at home, confirmed with pharmacy ([facility] in [place]) on admission * Patient evaluated by endocrinology; d/c meformin. c/w Januvia. patient started on Lantus 12 units subHS and Novolog premeal 6 units AC * Discussed with patient and nursing at bedside today, patient reports can take the pen, needs detailed instructions. * hgba1c: 9.8 * nurse educator referral * Diabetic teaching by nursing staff * Prescriptions upon discharge: 1) Novolog pen 6 units subqAC (1 pen) 2) Lantus pen 12 units (subHQs) (1 pen) 3) Januvia 50mg PO once a daily (30 tabs/no refills) 2) HTN * Continue HCTZ 12.5mg PO daily, Coreg 25mg PO BID, Amlopdipine 5mg PO daily 3) HLD * Continue Lipitor 20mg PO dqHS 4) Prophylactic measure * SCD, Pepcid, lovenox 40mg subdaily * PT/OT eval <Nickie Lopez - Last Filed: 10/20/17 20:16> Provider - Provider Date of Admission: 10/19/17 15:37 Attending physician: Stephanie Torres DO Time Spent in preparation of Discharge (in minutes): 40 Hospital Course - Lab Results Lab Results: Most Recent Lab Values WBC 8.3 K/uL (4.8-10.8) 10/20/17 08:27 RBC 4.58 Mil/uL (3.80-5.20) 10/20/17 08:27 Hgb 15.4 g/dL (11.0-16.0) 10/20/17 08:27 Hct 44.9 % (34.0-47.0) 10/20/17 08:27 MCV 98.2 fL (81.0-99.0) 10/20/17 08:27 MCH 33.7 pg (27.0-31.0) H 10/20/17 08:27 MCHC 34.3 g/dL (33.0-37.0) 10/20/17 08:27 RDW 15.0 % (11.5-14.5) H 10/20/17 08:27 Plt Count 157 K/uL (130-400) 10/20/17 08:27 MPV 9.5 fL (7.2-11.7) 10/20/17 08:27 Neut % (Auto) 75.1 % (50.0-75.0) H 10/20/17 08:27 Lymph % (Auto) 14.3 % (20.0-40.0) L 10/20/17 08:27 [place] % (Auto) 9.5 % (0.0-10.0) 10/20/17 08:27 Eos % (Auto) 0.9 % (0.0-4.0) 10/20/17 08: Baso % (Auto) 0.2 % (0.0-2.0) 10/20/17 08:27 Neut # 6.2 K/uL (1.8-7.0) 10/20/17 08:27 Lymph # 1.2 K/uL (1.0-4.3) 10/20/17 08:27 [place] # 0.8 K/uL (0.0-0.8) 10/20/17 08:27 Eos # 0.1 K/uL (0.0-0.7) 10/20/17 08:27 Baso # 0.0 K/uL (0.0-0.2) 10/20/17 08:27 PT 9.3 SECONDS (9.7-12.2) L 10/18/17 14:34 INR 0.8 10/18/17 14:34 APTT 27 SECONDS (21-34) 10/18/17 14:34 pO2 29 mm/Hg (30-55) L 10/18/17 14:42 VBG pH 7.36 (7.32-7.43) 10/18/17 14:42 VBG pCO2 42 mmHg (40-60) 10/18/17 14:42 VBG HCO3 22.3 mmol/L 10/18/17 14:42 VBG Total CO2 25.0 mmol/L (22-28) 10/18/17 14:42 VBG O2 Sat (Calc) 60.6 % (40-65) 10/18/17 14:42 VBG Base Excess -1.8 mmol/L (0.0-2.0) L 10/18/17 14:42 VBG Potassium 3.9 mmol/L (3.6-5.2) 10/18/17 14:42 Sodium 135.0 mmol/l (132-148) 10/18/17 14:42 Chloride 105.0 mmol/L (98-107) 10/18/17 14:42 Glucose 358 mg/dl (65-105) H 10/18/17 14:42 Lactate 1.3 mmol/L (0.7-2.1) 10/18/17 14:42 Sodium 136 mmol/L (132-148) 10/20/17 08:27 Potassium 4.1 mmol/L (3.6-5.2) 10/20/17 08:27 Chloride 103 mmol/L (98-107) 10/20/17 08:27 Carbon Dioxide 23 mmol/L (22-30) 10/20/17 08:27 Anion Gap 14 (10-20) 10/20/17 08:27 BUN 25 mg/dL (7-17) H 10/20/17 08:27 Creatinine 0.8 mg/dL (0.7-1.2) 10/20/17 08:27 Est GFR ( Amer) > 60 10/20/17 08:27 Est GFR (Non-Af Amer) > 60 10/20/17 08:27 POC Glucose (mg/dL) 224 mg/dL (65-110) H 10/20/17 07:00 Random Glucose 280 mg/dL (65-105) H 10/20/17 08:27 Hemoglobin A1c 9.8 % (4.2-6.5) H 10/18/17 18:12 Calcium 9.6 mg/dl (8.6-10.4) 10/20/17 08:27 Phosphorus 3.1 mg/dL (2.5-4.5) 10/20/17 08:27 Magnesium 1.4 mg/dL (1.6-2.3) L 10/20/17 08:27 Total Bilirubin 0.9 mg/dL (0.2-1.3) 10/20/17 08:27 AST 20 U/L (14-36) 10/20/17 08:27 ALT 39 U/L (9-52) 10/20/17 08:27 Alkaline Phosphatase 65 U/L (38-126) 10/20/17 08:27 Troponin I 0.0240 ng/mL (0.00-0.120) 10/18/17 14:34 Total Protein 6.1 g/dL (6.3-8.3) L 10/20/17 08:27 Albumin 3.7 g/dL (3.5-5.0) 10/20/17 08:27 Globulin 2.4 gm/dL (2.2-3.9) 10/20/17 08:27 Albumin/Globulin Ratio 1.6 (1.0-2.1) 10/20/17 08:27 Triglycerides 151 mg/dL (0-149) H 10/18/17 18:12 Cholesterol 156 mg/dL (0-199) 10/18/17 18:12 LDL Cholesterol Direct 85 mg/dL (0-129) 10/18/17 18:12 HDL Cholesterol 55 mg/dL (30-70) 10/18/17 18:12 Venous Blood Potassium 3.9 mmol/L (3.6-5.2) 10/18/17 14:42 Urine Color Yellow (YELLOW) 10/18/17 21:07 Urine Clarity Clear (Clear) 10/18/17 21:07 Urine pH 6.0 (5.0-8.0) 10/18/17 21:07 Ur Specific [place] 1.007 (1.003-1.030) 10/18/17 21:07 Urine Protein Negative mg/dL (NEGATIVE) 10/18/17 21:07 Urine Glucose (UA) 3+ mg/dL (Normal) H 10/18/17 21:07 Urine Ketones Trace mg/dL (NEGATIVE) 10/18/17 21:07 Urine Blood Negative (NEGATIVE) 10/18/17 21:07 Urine Nitrate Negative (NEGATIVE) 10/18/17 21:07 Urine Bilirubin Negative (NEGATIVE) 10/18/17 21:07 Urine Urobilinogen Normal mg/dL (0.2-1.0) 10/18/17 21:07 Ur Leukocyte Esterase Trace Kranthi/uL (Negative) 10/18/17 21:07 Urine WBC (Auto) 7 /hpf (0-5) H 10/18/17 21:07 Urine RBC (Auto) < 1 /hpf (0-3) 10/18/17 21:07 Urine Bacteria Few (<OCC) H 10/18/17 21:07 Serum Ketones Negative (NEGATIVE) 10/18/17 14:34 - Hospital Course Hospital Course: CC: sent by PMD HPI: 82F PMHx DM, HTN, kidney infection and HLD was sent by PMD for hyperglycemia. Pt reports for the past week her morning fasting sugar is around 300-400. Pt said she is urinating more than usual but does not feel thirsty all the time or drinks more water than usual. Pt denied any pain, SOB, n/v, fever, chills, numbness, tingling. Pt reports previous A1c last month of 7. Pt said her last medication change was Amaryl 4 months ago. Pt said she is taking medication as prescribed. Pt also see ophthamologist and lumber sorter machine. PMHx: as above PSHx: none FMHx: brother and sister have DM Social: denied ETOH, drugs or tobacco. Drinks 1 cup of coffee in the morning. 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 Gauthier a Implementation Advisor was consulted. Her recommendation was Lantus 12 units HS and Novolog 6 units TID. Patient's HgbA1C: 9.8. Patient's Lipid Panel: Total Cholesterol 156; Triglycerides 151; LDL 85; HDL 55. Patient was seen and examined at bedside. Patient reports that she is doing well with no complaints. Patient denies chest nausea, chest pain, sob, palpitations, dizziness, abdominal pain, numbness or tingling. Patient states she knows how to administer insulin as her sister has diabetes also and uses insulin. Patient states she feels well to go home. Patient is medically stable for discharge. Patient confirms at bedside she is able to self-administer insulin to herself. She reports she has taken humalog pen in the past and demonstrates with me at bedside. Patient to follow-up with Dr. K Canada within one week of discharge. Prescription: 1) Lantus pen 2) Novolog pen 3) Januvia Stop prescription: Stop Janumet. Discharge Exam - Head Exam Head Exam: ATRAUMATIC, NORMAL INSPECTION - Eye Exam Eye Exam: EOMI, Normal appearance - ENT Exam ENT Exam: Mucous Membranes Moist - Respiratory Exam Respiratory Exam: Clear to PA & Lateral, NORMAL BREATHING PATTERN - Cardiovascular Exam Cardiovascular Exam: REGULAR RHYTHM, RRR, +S1, +S2 - GI/Abdominal Exam GI & Abdominal Exam: Normal Bowel Sounds, Soft. absent: Tenderness - Extremities Exam Extremities exam: normal inspection - Neurological Exam Neurological exam: Alert, Oriented x3 - Psychiatric Exam Psychiatric exam: Normal Affect, Normal Mood - Skin Skin Exam: Normal Color, Warm
[2017-10-20] MEDS: Enoxaparin 40 mg Syringe SC SCH (10:42)
--- NOTE | 2017-10-20 15:13 | PN ---
DATE: ENDOCRINOLOGY FOLLOWUP NOTE LOCATION: Room 365. SUBJECTIVE: This is an 82-year-old female with recent uncontrolled type 2 insulin-requiring diabetes, now being followed closely for metabolic management. Her oral intake is quite variable as noted and she continues to have hyperglycemic fluctuations and today's glucose values have ranged from 224 to 291 mg/dL. Her latest chemistry showed the BUN of 25, sodium 136, potassium 4.1, chloride 103, CO2 of 23, glucose 280, and creatinine 0.8. So, at this time, we will modify her basal and bolus insulin regimen once again and increase the Novolog to 10 units subcutaneous t.i.d. before meals as ordered. We will also increase the basal insulin to 20 units of her Lantus to be given at bedtime to start tonight. The patient apparently is already on those medications as clarified by the family at home. So, we are just modifying her basal and bolus insulin regimen to optimize metabolic control. We will obtain serum chemistries and supplement accordingly as need. She is scheduled for discharge today as noted. She will also continue the Januvia given as 50 mg once daily. She will be following with her medical doctor for outpatient diabetic and medical followup. Ingrid Gauthier MD
[2017-10-20] MEDS ORDERED: Patient's Own Injectable SC SCH ×2 (16:30→22:00)
--- NOTE | 2017-11-07 19:17 | CARD ---
APPROVED REPORT EKG Measurement Heart [id number] [place] [id number] <Conclusion> Normal sinus rhythm Normal ECG
== END 2017-10-20 12:45 | disposition home or self-care (01) ==
LOC: C.ER 12:41 → C.9E 15:37 → C.3T 20:46 → INTOOBSV 10-19 15:37 → OBSVTOIN 10-19 15:37
PROVIDERS: ADMIT Hospitalist; ATTEND Hospitalist
DX: E11.65 Type 2 diabetes mellitus with hyperglycemia (principal); E86.0 Dehydration; E11.319 Type 2 diabetes mellitus with unspecified diabetic retinopathy without macular edema; I10 Essential (primary) hypertension; E78.5 Hyperlipidemia, unspecified; Z79.4 Long term (current) use of insulin
CPT/HCPCS: 36415; 80053; 80061; 81001; 82009; 82803; 82948; 83036; 83735; 84100; 84484; 85025; 85610; 85730; 93005; 96360; 97116; 97162; 99285; G0378; G8978; G8979; J1650; J7030; J7040

== ENCOUNTER 2017-10-31 12:15 | Inpatient (IN) | payer OTHER ==
--- NOTE | 2017-10-31 12:25 | C.PDOC ---
History Of Present Illness LIMITED DUE TO CLIN COND PER EMS, PT FOUND UNRESPONSE BY FAMILY. +AMS, DROOLING +VITALS. FS 53. S/P D50 W IMPROVE IN MS. NO REPORTED PAIN EN ROUTE. PS "I FEEL FINE" DENIES CHAKRABORTY, CP OTHER SX. +HO DM, HTN. DENIES HO PRIOR DC. 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 ROS LIMITED EXAM NONTOXIC HEENT ATRAUM PERRLA NECK SUPPLE LUNGS NEG CV RRR ABD NEG NEURO SEE NIH REMAINDER NEG Time Seen by Provider: 10/31/17 12:21 History Per: Patient, EMS, Family History/Exam Limitations: Clinical Condition Past Medical History Reviewed: Historical Data, Nursing Documentation, Vital Signs Vital Signs: Last Vital Signs Temp 97.6 F 10/31/17 15:09 Pulse 68 10/31/17 15:09 Resp 20 10/31/17 15:09 BP 150/84 10/31/17 15:09 Pulse Ox 100 10/31/17 15:09 - Medical History PMH: HTN Family History: States: No Known Family Hx - Social History Hx Alcohol Use: No Hx Substance Use: No - Immunization History Hx Tetanus Toxoid Vaccination: No Hx Influenza Vaccination: No Hx Pneumococcal Vaccination: No Review Of Systems Except As Marked, All Systems Reviewed And Found Negative. (Limited) Cardiovascular: Negative for: Chest Pain Respiratory: Negative for: Shortness of Breath Neurological: Positive for: Altered Mental Status. Negative for: Headache Physical Exam - Physical Exam Appears: Non-toxic Skin: Warm, Dry Head: Atraumatic, Normacephalic Eye(s): bilateral: PERRL Neck: Normal, Normal ROM, Supple Cardiovascular: Rhythm Regular Respiratory: Normal Breath Sounds, No Rales, No Rhonchi, No Stridor, No Wheezing Gastrointestinal/Abdominal: Normal Exam, Soft, No Tenderness, No Guarding, No Rebound Neurological/Psych: Other (See NIH) ED Course And Treatment - Laboratory Results Result Diagrams: 10/31/17 12:32 10/31/17 12:32 - Radiology CXR: Interpreted by Me, Viewed By Me CXR Interpretation: Yes: No Acute Disease - CT Scan/US CT - Head Other Rad Studies (CT/US): Read By Radiologist, Radiology Report Reviewed CT/US Interpretation: PROCEDURE: CT HEAD WITHOUT CONTRAST. HISTORY: AMS. COMPARISON: None available. TECHNIQUE: Axial computed tomography images were obtained through the head/brain without intravenous contrast. Radiation dose: Total exam DLP = 854.14 mGy-cm. This CT exam was performed using one or more of the following dose reduction techniques: Automated exposure control, adjustment of the mA and/or kV according to patient size, and/or use of iterative reconstruction technique. FINDINGS: HEMORRHAGE: No intracranial hemorrhage. BRAIN: Diffuse atrophy with prominence of the ventricles and sulci noted. No mass effect or edema. Dense intracranial atherosclerosis. Scattered white matter hypodensities, which are nonspecific, but often seen with chronic microvascular ischemic disease. Please note that MRI with diffusion imaging is more sensitive in the detection of acute ischemic event. VENTRICLES: No hydrocephalus. CALVARIUM: Unremarkable. PARANASAL SINUSES: Unremarkable as visualized. No significant inflammatory changes. MASTOID AIR CELLS: Unremarkable as visualized. No inflammatory changes. OTHER FINDINGS: None. IMPRESSION: Generalized atrophy. Nonspecific white matter changes. NIHSS Stroke Scale - Date/Time Evaluation Performed Date Performed: 10/31/17 Time Performed: 12:25 When Was NIHSS Performed: Baseline - How Severe is the [place] Level of Consciousness: 0=Alert LOC to Questions: 0=Both comments correct LOC to commands: 0=Obeys both correctly Best Gaze: 0=Normal Visual: 0=No visual loss Facial: 0=Normal Motor Arm - Left: 0=No drift Motor Arm - Right: 0=No drift Motor Leg - Left: 0=No drift Motor Leg - Right: 0=No drift Limb Ataxia: 0=Absent Sensory: 0=Normal Best Language: 0=No aphasia Dysarthia: 0=Normal articulation Extinction & Inattention (Neglect): 0=Normal, no object Score: 0 Severity Of Stroke: 0= No Stroke Progress - Re-Evaluation Re-evaluation Note: 10/31/17 12:22 CODE HEART ACTIVATED UPON PT ARRIVAL 10/31/17 12:23 D/W DR HERNANDEZ CODE HEART, STATES PT IS NOT A CODE HEART. CT HEAD 10/31/17 14:24 EXAM UNCH FROM PRIOR DW DR TORRES C/F PMD WILL ADMIT - Data Reviewed Data Reviewed: Lab, Diagnostic imaging, EKG, Old records - Critical Care Critical Care Time: 90 minutes rTPA Inclusion/Exclusion - Refusal of Treatment Patient Refused Treatment: No - Inclusion Criteria for Altepase Patient is 18 years or Older: Yes Clinical DX Ischemic Stroke Cause Neurological Deficit: No Time of Onset Established Less Than 270 Mins Before TX Begin: Yes Risk/Benefit Discussed With Patient/Family Member Present: No - Exclusion Criteria for Altepase Uncontrolled Hypertension at Time of TX (SBP>185 or DBP>110): No - Warning to TPA With Conditions Following Conditions Weighed Against Anticipated Benefit: Yes Condition: Stroke Serevity Too Mild, Age Greater Than 75 years Additional Condition (For 3-4.5 Hour Window): Age Greater Than 80, Prior Stroke and Diabetes Medical Decision Making Medical Decision Making: PLAN: * CT - Head * CXR * Troponin * CBC * CMP * Zofran IVP Disposition Counseled Patient/Family Regarding: Studies Performed, Diagnosis - Disposition Disposition: HOSPITALIZED Disposition Time: 14:29 Condition: STABLE - POA Present On Arrival: Poor Glycemic Control - Clinical Impression Clinical Impression: Altered mental state - Scribe Statement The provider has reviewed the documentation as recorded by the Scribe Sherri Serna Provider Attestation: All medical record entries made by the Scribe were at my direction and personally dictated by me. I have reviewed the chart and agree that the record accurately reflects my personal performance of the history, physical exam, medical decision making, and the department course for this patient. I have also personally directed, reviewed, and agree with the discharge instructions and disposition. Decision To Admit - Pt Status Changed To: Hospital Disposition Of: Observation - . Bed Request Type: Telemetry Admitting Physician: Stephanie Torres Patient Diagnosis: Altered mental state
[2017-10-31 12:37] LABS: BASO % 0.2 % (0.0-2.0); EOS # 0.2 K/uL (0.0-0.7); EOS % 1.9 % (0.0-4.0); LYMPH % 8.9 % (20.0-40.0); MEAN CELL VOLUME 98.8 fL (81.0-99.0); MEAN CORPUSCULAR HGB CONC 33.4 g/dL (33.0-37.0); MEAN PLATELET VOLUME 8.2 fL (7.2-11.7); MONO % 9.4 % (0.0-10.0); PLATELET COUNT 253 K/uL (130-400); RED CELL DISTRIBUTION WIDTH 15.2 % (11.5-14.5); WHITE BLOOD COUNT 10.9 K/uL (4.8-10.8)
[2017-10-31 12:48] LABS: INR 0.9
[2017-10-31 12:59] LABS: ALB/GLOB RATIO 1.2 (1.0-2.1); ALKALINE PHOSPHATASE 65 U/L (38-126); ALT/SGPT 34 U/L (9-52); AST/SGOT 56 U/L (14-36); BILIRUBIN,TOTAL 0.9 mg/dL (0.2-1.3); BLOOD UREA NITROGEN 15 mg/dL (7-17); CALCIUM 9.5 mg/dl (8.6-10.4); CARBON DIOXIDE 24 mmol/L (22-30); CHLORIDE 107 mmol/L (98-107); GFR AFRICAN-AMERICAN > 60; GLUCOSE,RANDOM 123 mg/dL (65-105); POTASSIUM 4.1 mmol/L (3.6-5.2); SODIUM 142 mmol/L (132-148); TOTAL PROTEIN 7.4 g/dL (6.3-8.3)
[2017-10-31 13:01] LABS: EOSINOPHIL 4 % (0-4); NEUTROPHIL 74 % (50-75); TOTAL CELLS COUNTED 100
--- NOTE | 2017-10-31 13:01 | RAD ---
HISTORY: chest pain COMPARISON: None available. TECHNIQUE: Chest, one view. FINDINGS: LUNGS: No focal consolidation. Please note that chest x-ray has limited sensitivity for the detection of pulmonary masses. PLEURA: No significant pleural effusion identified. No definite pneumothorax . CARDIOVASCULAR: Heart size appears within normal limits. Dense atherosclerotic calcifications of the aortic knob. OSSEOUS STRUCTURES: Osseous demineralization. Degenerative changes. Evidence of calcific tendonitis, left shoulder. VISUALIZED UPPER ABDOMEN: Unremarkable. OTHER FINDINGS: None. IMPRESSION: No focal consolidation, significant pleural effusion, or definite pneumothorax identified.
--- NOTE | 2017-10-31 13:33 | CP.PCM.CON ---
<Nico Stevens - Last Filed: 10/31/17 13:33> History of Present Illness - History of Present Illness History of Present Illness: Cardiology Consult note for Dr. Alberts Patient is an 82 year old female with past medical history of DM, hypertension, hyperlipidemia who presents to [facility] ED with complaints of altered mental status. As per EMS report patient was found unresponsive by family. Once EMS arrived patient's fingerstick revealed a glucose level of 53 for which D50 was administered resulting in improvement of patient's mental status. Patient states she doesn't recall passing out. Information obtained from patient was limited due to altered mental status. Patient states she was at the [employer] [place] when she was found passed out by her friend; patient was also confusing sister with friend as well as confusing where the event occurred; supporting her current altered state. Patient currently denies chest pain, palpitations, shortness of breath, weakness, dizziness. Code heart was called and cardiology was consulted due to possible ST elevations on EKG. However the EKG abnormality is due to early repolarization; code heart was cancelled. Will continue however to follow case and monitor patient when admitted. Patient underwent lexiscan nuclear stress test in 2013 which revealed normal function of LV, without signs of perfusion/metabolic defects with EF at 70%. Repeat lexiscan nuclear stress test was performed which revealed no changes aside from ejection fraction being 55%. PMD: Dr. Jon Past surgical history: denies Family history: DM in brother and sister Social History: denies tobacco, alcohol, or illicit drug use. Review of Systems - Review of Systems Systems not reviewed;Unavailable: Altered Mental Status Past Patient History - Past Medical History & Family History Past Medical History?: Yes - Past Social History Smoking Status: Never Smoked - CARDIAC Hx Hypertension: Yes - PULMONARY Hx Respiratory Disorders: No - NEUROLOGICAL Hx Neurological Disorder: No - HEENT Hx HEENT Problems: No - RENAL Hx Chronic Kidney Disease: No - ENDOCRINE/METABOLIC Hx Endocrine Disorders: Yes Hx Diabetes Mellitus Type 2: Yes - HEMATOLOGICAL/ONCOLOGICAL Hx Blood Disorders: No - INTEGUMENTARY Hx Dermatological Problems: No - MUSCULOSKELETAL/RHEUMATOLOGICAL Hx Musculoskeletal Disorders: Yes Hx Falls: Yes - GASTROINTESTINAL Hx Gastrointestinal Disorders: No - GENITOURINARY/GYNECOLOGICAL Hx Genitourinary Disorders: No - PSYCHIATRIC Hx Substance Use: No - SURGICAL HISTORY Hx Surgeries: No - ANESTHESIA Hx Anesthesia: Yes Hx Anesthesia Reactions: No Hx Malignant Hyperthermia: No Meds Allergies/Adverse Reactions: Allergies Allergy/AdvReac Type Severity Reaction Status Date / Time No Known Allergies Allergy Verified 10/18/17 13:21 Physical Exam - Constitutional Appears: Toxic - Head Exam Head Exam: ATRAUMATIC, NORMAL INSPECTION, NORMOCEPHALIC - Eye Exam Eye Exam: EOMI, Normal appearance - ENT Exam ENT Exam: Mucous Membranes Dry - Neck Exam Neck exam: Positive for: Normal Inspection - Respiratory Exam Respiratory Exam: Clear to Auscultation Bilateral, NORMAL BREATHING PATTERN. absent: Rhonchi, Wheezes - Cardiovascular Exam Cardiovascular Exam: +S1, +S2 - GI/Abdominal Exam GI & Abdominal Exam: Normal Bowel Sounds, Soft - Neurological Exam Neurological exam: Altered - Skin Skin Exam: Normal Color, Warm Results - Vital Signs Recent Vital Signs: Last Vital Signs Temp 97.5 F L 10/31/17 12:15 Pulse 75 10/31/17 12:52 Resp 17 10/31/17 12:52 BP 161/72 H 10/31/17 12:52 Pulse Ox 100 10/31/17 12:52 - Labs Result Diagrams: 10/31/17 12:32 10/31/17 12:32 Labs: Laboratory Results - last 24 hr 10/31/17 10/31/17 10/31/17 12:21 12:32 12:32 WBC 10.9 H RBC 4.56 Hgb 15.0 Hct 45.0 MCV 98.8 MCH 33.0 H MCHC 33.4 RDW 15.2 H Plt Count 253 MPV 8.2 Neut % (Auto) 79.6 H Lymph % (Auto) 8.9 L [place] % (Auto) 9.4 Eos % (Auto) 1.9 Baso % (Auto) 0.2 Neut # 8.7 H Lymph # 1.0 [place] # 1.0 H Eos # 0.2 Baso # 0.0 Neutrophils % (Manual) 74 Band Neutrophils % 2 Lymphocytes % (Manual) 10 L Monocytes % (Manual) 10 Eosinophils % (Manual) 4 Platelet Estimate Normal Anisocytosis (manual) Slight PT 10.0 INR 0.9 APTT 35 H Sodium Potassium Chloride Carbon Dioxide Anion Gap BUN Creatinine Est GFR ( Amer) Est GFR (Non-Af Amer) POC Glucose (mg/dL) 169 H Random Glucose Calcium Total Bilirubin AST ALT Alkaline Phosphatase Total Protein Albumin Globulin Albumin/Globulin Ratio 10/31/17 12:32 WBC RBC Hgb Hct MCV MCH MCHC RDW Plt Count MPV Neut % (Auto) Lymph % (Auto) [place] % (Auto) Eos % (Auto) Baso % (Auto) Neut # Lymph # [place] # Eos # Baso # Neutrophils % (Manual) Band Neutrophils % Lymphocytes % (Manual) Monocytes % (Manual) Eosinophils % (Manual) Platelet Estimate Anisocytosis (manual) PT INR APTT Sodium 142 Potassium 4.1 Chloride 107 Carbon Dioxide 24 Anion Gap 15 BUN 15 Creatinine 0.7 Est GFR ( Amer) > 60 Est GFR (Non-Af Amer) > 60 POC Glucose (mg/dL) Random Glucose 123 H Calcium 9.5 Total Bilirubin 0.9 AST 56 H D ALT 34 Alkaline Phosphatase 65 Total Protein 7.4 Albumin 4.1 Globulin 3.3 Albumin/Globulin Ratio 1.2 Assessment & Plan - Assessment and Plan (Free Text) Assessment: Patient is an 82 year old female with history of DM, hypertension, and hyperlipidemia who presented with altered mental status and possible syncopal episode due to hypoglycemia. Plan: 1. Syncopal episode due to hypoglycemia vs cardiac etiology vs neurologic etiology - Patient's fingerstick upon EMS arrival was 53, D50 was given, patient's mental status improved - EKG reveals early repolarizations thought to originally be ST elevations. Early repolarizations evidenced by J note appearance and lack of reciprocation of ST elevations in reciprocal leads. - Carotid duplex ordered; results pending - ASCVD score is 83.5%; patient was originally on lipitor 20; due to patient's need for a high intensity statin; rosuvastatin 20 mg started - HgA1c ordered, results pending - Troponins ordered; results pending <Juan Diego Alberts - Last Filed: 10/31/17 16:52> Meds - Medications Medications: Current Medications Aspirin (Ecotrin) 81 mg PO DAILY [facility] Heparin Sodium (Porcine) (Heparin) 5,000 units SC Q12 [facility] Losartan Potassium (Cozaar) 25 mg PO DAILY [facility] Pantoprazole Sodium (Protonix Ec Tab) 40 mg PO DAILY [facility] Last Admin: 10/31/17 15:50 Dose: 40 mg Rosuvastatin Calcium (Crestor) 20 mg PO HS [facility] Results - Vital Signs Recent Vital Signs: Last Vital Signs Temp 98.0 F 10/31/17 16:41 Pulse 70 10/31/17 16:41 Resp 18 10/31/17 16:41 BP 137/62 10/31/17 16:41 Pulse Ox 98 10/31/17 16:41 - Labs Result Diagrams: 10/31/17 12:32 10/31/17 12:32 Labs: Laboratory Results - last 24 hr 10/31/17 10/31/17 10/31/17 12:21 12:32 12:32 WBC 10.9 H RBC 4.56 Hgb 15.0 Hct 45.0 MCV 98.8 MCH 33.0 H MCHC 33.4 RDW 15.2 H Plt Count 253 MPV 8.2 Neut % (Auto) 79.6 H Lymph % (Auto) 8.9 L [place] % (Auto) 9.4 Eos % (Auto) 1.9 Baso % (Auto) 0.2 Neut # 8.7 H Lymph # 1.0 [place] # 1.0 H Eos # 0.2 Baso # 0.0 Neutrophils % (Manual) 74 Band Neutrophils % 2 Lymphocytes % (Manual) 10 L Monocytes % (Manual) 10 Eosinophils % (Manual) 4 Platelet Estimate Normal Anisocytosis (manual) Slight PT 10.0 INR 0.9 APTT 35 H Sodium Potassium Chloride Carbon Dioxide Anion Gap BUN Creatinine Est GFR ( Amer) Est GFR (Non-Af Amer) POC Glucose (mg/dL) 169 H Random Glucose Calcium Total Bilirubin AST ALT Alkaline Phosphatase Troponin I Total Protein Albumin Globulin Albumin/Globulin Ratio 10/31/17 12:32 WBC RBC Hgb Hct MCV MCH MCHC RDW Plt Count MPV Neut % (Auto) Lymph % (Auto) [place] % (Auto) Eos % (Auto) Baso % (Auto) Neut # Lymph # [place] # Eos # Baso # Neutrophils % (Manual) Band Neutrophils % Lymphocytes % (Manual) Monocytes % (Manual) Eosinophils % (Manual) Platelet Estimate Anisocytosis (manual) PT INR APTT Sodium 142 Potassium 4.1 Chloride 107 Carbon Dioxide 24 Anion Gap 15 BUN 15 Creatinine 0.7 Est GFR ( Amer) > 60 Est GFR (Non-Af Amer) > 60 POC Glucose (mg/dL) Random Glucose 123 H Calcium 9.5 Total Bilirubin 0.9 AST 56 H D ALT 34 Alkaline Phosphatase 65 Troponin I 0.0120 Total Protein 7.4 Albumin 4.1 Globulin 3.3 Albumin/Globulin Ratio 1.2 Assessment & Plan (1) ST elevation Assessment and Plan: EKG changes c/w early repolarization and not ischemia Recent stress test by was normal to resume care of the patient Status: Acute (2) Altered mental state Status: Acute (3) Syncope Status: Acute (4) History of hyperlipidemia Status: Acute (5) History of hypertension Status: Acute Attending/Attestation - Attestation I have personally seen and examined this patient.: Yes I have fully participated in the care of the patient.: Yes I have reviewed all pertinent clinical information: Yes Notes (Text): 10/31/17 16:51 pt seen and evaluated hx suggestive of possible hypoglycemia induced MS changes EKG not ischemic following patient as outpt who will resume care monitor on telemetry check orthostatics
--- NOTE | 2017-10-31 14:19 | CT ---
PROCEDURE: CT HEAD WITHOUT CONTRAST. HISTORY: AMS COMPARISON: None available. TECHNIQUE: Axial computed tomography images were obtained through the head/brain without intravenous contrast. Radiation dose: Total exam DLP = 854.14 mGy-cm. This CT exam was performed using one or more of the following dose reduction techniques: Automated exposure control, adjustment of the mA and/or kV according to patient size, and/or use of iterative reconstruction technique. FINDINGS: HEMORRHAGE: No intracranial hemorrhage. BRAIN: Diffuse atrophy with prominence of the ventricles and sulci noted. No mass effect or edema. Dense intracranial atherosclerosis. Scattered white matter hypodensities, which are nonspecific, but often seen with chronic microvascular ischemic disease. Please note that MRI with diffusion imaging is more sensitive in the detection of acute ischemic event. VENTRICLES: No hydrocephalus. CALVARIUM: Unremarkable. PARANASAL SINUSES: Unremarkable as visualized. No significant inflammatory changes. MASTOID AIR CELLS: Unremarkable as visualized. No inflammatory changes. OTHER FINDINGS: None. IMPRESSION: Generalized atrophy. Nonspecific white matter changes.
--- NOTE | 2017-10-31 15:19 | CP.PCM.HP ---
<Jack Mcclure - Last Filed: 10/31/17 15:49> History of Present Illness - History of Present Illness History of Present Illness: cc: "i passed out" HPI: Patient is an 82 year old female with PMHx of uncontrolled DM, hypertension , hyperlipidemia presenting to the hospital after being brought in by ambulance for altered mental status. The patient states that the history she knows comes from her friend. She says that her friend came to visit her in the senior citizen building that she lives in, as she normally does every day, and found that she was unconscious. Patient states she does not recall how she ended up there. Her last memory was of the EMS coming to pick her up and taking her to the hospital. As per EMS, she appeared to be altered. She was given an amp of D50 and a fluid bolus and she returned to what appeared to be a normal mental status. Patient states that she takes Lantus at night, as well as insulin prior to meals. She says she takes about 15U of Lantus every night, and uses a sliding scale for her insulin prior to meals. She recalls taking 8U of insulin this AM, but does not recall what her blood glucose was this AM. She also recalls eating a bagel this morning. She states she took Atorvastatin and Januvia as well. She states she does not take any other medications. She is able to recall the day of the week, month, her name and her current location, but does not recall the year. PMD: Dr. Jon PMHx: As stated above PSHx: None Allergies: NKDA Fam hx: noncontributory Social hx: Denies smoking, alcohol, drug history. Lives alone at a senior citizen housing. No children, unmarried. Present on Admission - Present on Admission Any Indicators Present on Admission: Yes Review of Systems - Review of Systems Systems not reviewed;Unavailable: Other - Constitutional Constitutional: absent: Chills, Frequent Falls, Night Sweats - EENT Eyes: absent: Blind Spots, Blurred Vision, Decreased Night Vision Nose/Mouth/Throat: absent: Nasal Discharge, Neck Pain, Neck Mass - Breasts Breasts: absent: Mass, Pain - Cardiovascular Cardiovascular: absent: Chest Pain, Irregular Heart Rhythm, Leg Edema, Palpitations, Pedal Edema - Respiratory Respiratory: absent: Cough, Dyspnea, Wheezing - Gastrointestinal Gastrointestinal: absent: Abdominal Pain, Diarrhea, Excessive Flatus, Nausea, Vomiting - Genitourinary Genitourinary: absent: Change in Urinary Stream, Difficulty Urinating - Musculoskeletal Musculoskeletal: absent: Arthralgias, Atrophy, Numbness - Integumentary Integumentary: absent: Alopecia, Bleeding Lesions, Unusual Bruising - Neurological Neurological: absent: Abnormal Movements, Frequent Falls, Tingling, Tremor, Vertigo, Weakness - Psychiatric Psychiatric: absent: Anxiety, Panic Attacks, Suicidal Ideation - Endocrine Endocrine: absent: Cold Intolorance, Deepening of Voice, Flushing Past Patient History - Past Medical History & Family History Past Medical History?: Yes - Past Social History Smoking Status: Never Smoked Chewing Tobacco Use: No Cigar Use: No Alcohol: None Drugs: Denies Home Situation {Lives}: Alone - CARDIAC Hx Hypertension: Yes - PULMONARY Hx Respiratory Disorders: No - NEUROLOGICAL Hx Neurological Disorder: No - HEENT Hx HEENT Problems: No - RENAL Hx Chronic Kidney Disease: No - ENDOCRINE/METABOLIC Hx Endocrine Disorders: Yes Hx Diabetes Mellitus Type 2: Yes - HEMATOLOGICAL/ONCOLOGICAL Hx Blood Disorders: No - INTEGUMENTARY Hx Dermatological Problems: No - MUSCULOSKELETAL/RHEUMATOLOGICAL Hx Musculoskeletal Disorders: Yes Hx Falls: Yes - GASTROINTESTINAL Hx Gastrointestinal Disorders: No - GENITOURINARY/GYNECOLOGICAL Hx Genitourinary Disorders: No - PSYCHIATRIC Hx Substance Use: No - SURGICAL HISTORY Hx Surgeries: No - ANESTHESIA Hx Anesthesia: Yes Hx Anesthesia Reactions: No Hx Malignant Hyperthermia: No Meds Allergies/Adverse Reactions: Allergies Allergy/AdvReac Type Severity Reaction Status Date / Time No Known Allergies Allergy Verified 10/18/17 13:21 Physical Exam - Constitutional Appears: Non-toxic, No Acute Distress - Head Exam Head Exam: ATRAUMATIC, NORMAL INSPECTION, NORMOCEPHALIC - Eye Exam Pupil Exam: NORMAL ACCOMODATION, PERRL - ENT Exam ENT Exam: Mucous Membranes Moist - Neck Exam Neck exam: Positive for: Normal Inspection - Respiratory Exam Respiratory Exam: Clear to Auscultation Bilateral, NORMAL BREATHING PATTERN. absent: Prolonged Expiratory Phase, Rales, Rhonchi, Wheezes - Cardiovascular Exam Cardiovascular Exam: REGULAR RHYTHM, +S1, +S2 - GI/Abdominal Exam GI & Abdominal Exam: Normal Bowel Sounds, Soft. absent: Distended, Firm, Hyperactive Bowel Sounds, Tenderness - Extremities Exam Extremities exam: Positive for: normal capillary refill, pedal pulses present - Neurological Exam Neurological exam: Alert, CN II-XII Intact, Oriented x3 - Psychiatric Exam Psychiatric exam: Normal Affect, Normal Mood - Skin Skin Exam: Dry, Intact, Normal Color, Warm Results - Vital Signs Recent Vital Signs: Last Vital Signs Temp 97.6 F 10/31/17 15:09 Pulse 68 10/31/17 15:09 Resp 20 10/31/17 15:09 BP 150/84 10/31/17 15:09 Pulse Ox 100 10/31/17 15:09 - Labs Result Diagrams: 10/31/17 12:32 10/31/17 12:32 Labs: Laboratory Results - last 24 hr 10/31/17 10/31/17 10/31/17 12:21 12:32 12:32 WBC 10.9 H RBC 4.56 Hgb 15.0 Hct 45.0 MCV 98.8 MCH 33.0 H MCHC 33.4 RDW 15.2 H Plt Count 253 MPV 8.2 Neut % (Auto) 79.6 H Lymph % (Auto) 8.9 L [place] % (Auto) 9.4 Eos % (Auto) 1.9 Baso % (Auto) 0.2 Neut # 8.7 H Lymph # 1.0 [place] # 1.0 H Eos # 0.2 Baso # 0.0 Neutrophils % (Manual) 74 Band Neutrophils % 2 Lymphocytes % (Manual) 10 L Monocytes % (Manual) 10 Eosinophils % (Manual) 4 Platelet Estimate Normal Anisocytosis (manual) Slight PT 10.0 INR 0.9 APTT 35 H Sodium Potassium Chloride Carbon Dioxide Anion Gap BUN Creatinine Est GFR ( Amer) Est GFR (Non-Af Amer) POC Glucose (mg/dL) 169 H Random Glucose Calcium Total Bilirubin AST ALT Alkaline Phosphatase Troponin I Total Protein Albumin Globulin Albumin/Globulin Ratio 10/31/17 12:32 WBC RBC Hgb Hct MCV MCH MCHC RDW Plt Count MPV Neut % (Auto) Lymph % (Auto) [place] % (Auto) Eos % (Auto) Baso % (Auto) Neut # Lymph # [place] # Eos # Baso # Neutrophils % (Manual) Band Neutrophils % Lymphocytes % (Manual) Monocytes % (Manual) Eosinophils % (Manual) Platelet Estimate Anisocytosis (manual) PT INR APTT Sodium 142 Potassium 4.1 Chloride 107 Carbon Dioxide 24 Anion Gap 15 BUN 15 Creatinine 0.7 Est GFR ( Amer) > 60 Est GFR (Non-Af Amer) > 60 POC Glucose (mg/dL) Random Glucose 123 H Calcium 9.5 Total Bilirubin 0.9 AST 56 H D ALT 34 Alkaline Phosphatase 65 Troponin I 0.0120 Total Protein 7.4 Albumin 4.1 Globulin 3.3 Albumin/Globulin Ratio 1.2 Assessment & Plan (1) Syncope Status: Acute Comment: Likely secondary to hypoglycemic episode. CT scan- 10/31/17- generalized atrophy, nonspecific whitematter changes. CXR- 10/31/17- normal. Carotid Dopplers- prelim- normal. Monitor on telemetry. f/u ROMIs, EKGs, TSH. Monitor accucheck ACHS (2) Altered mental state Status: Acute Comment: See plan for Syncope. (3) Uncontrolled diabetes mellitus Status: Acute Comment: Will start patient on Lantus 10U qHS. accuchecks ACHS. ADA diet. f/ u hgbA1C (4) History of hyperlipidemia Status: Acute Comment: Continue Crestor 20mg qHS. f/u lipid panel (5) History of hypertension Status: Acute Comment: Will start patient on Losartan 25mg PO Daily (6) ST elevation Status: Acute Comment: As per cardio, ST elevations on initial EKG likely due to early repolarization. Consult cardio- Dr. Morgan (personal survey director). Was initially evaluated by Dr. Alberts. Stress test from 06/2017 was normal. Troponin negative x1. f/u troponins/ EKGs x 2 (7) Prophylactic measure Status: Acute Comment: Protonix 40mg PO Daily. SCDs. Heparin 5000U SC Q12h <Stephanie Torres V - Last Filed: 10/31/17 17:26> Results - Vital Signs Recent Vital Signs: Last Vital Signs Temp 98.0 F 10/31/17 16:41 Pulse 70 10/31/17 16:41 Resp 18 10/31/17 16:41 BP 137/62 10/31/17 16:41 Pulse Ox 98 10/31/17 16:41 - Labs Result Diagrams: 10/31/17 12:32 10/31/17 12:32 Labs: Laboratory Results - last 24 hr 10/31/17 10/31/17 10/31/17 12:21 12:32 12:32 WBC 10.9 H RBC 4.56 Hgb 15.0 Hct 45.0 MCV 98.8 MCH 33.0 H MCHC 33.4 RDW 15.2 H Plt Count 253 MPV 8.2 Neut % (Auto) 79.6 H Lymph % (Auto) 8.9 L [place] % (Auto) 9.4 Eos % (Auto) 1.9 Baso % (Auto) 0.2 Neut # 8.7 H Lymph # 1.0 [place] # 1.0 H Eos # 0.2 Baso # 0.0 Neutrophils % (Manual) 74 Band Neutrophils % 2 Lymphocytes % (Manual) 10 L Monocytes % (Manual) 10 Eosinophils % (Manual) 4 Platelet Estimate Normal Anisocytosis (manual) Slight PT 10.0 INR 0.9 APTT 35 H Sodium Potassium Chloride Carbon Dioxide Anion Gap BUN Creatinine Est GFR ( Amer) Est GFR (Non-Af Amer) POC Glucose (mg/dL) 169 H Random Glucose Calcium Total Bilirubin AST ALT Alkaline Phosphatase Troponin I Total Protein Albumin Globulin Albumin/Globulin Ratio 10/31/17 12:32 WBC RBC Hgb Hct MCV MCH MCHC RDW Plt Count MPV Neut % (Auto) Lymph % (Auto) [place] % (Auto) Eos % (Auto) Baso % (Auto) Neut # Lymph # [place] # Eos # Baso # Neutrophils % (Manual) Band Neutrophils % Lymphocytes % (Manual) Monocytes % (Manual) Eosinophils % (Manual) Platelet Estimate Anisocytosis (manual) PT INR APTT Sodium 142 Potassium 4.1 Chloride 107 Carbon Dioxide 24 Anion Gap 15 BUN 15 Creatinine 0.7 Est GFR ( Amer) > 60 Est GFR (Non-Af Amer) > 60 POC Glucose (mg/dL) Random Glucose 123 H Calcium 9.5 Total Bilirubin 0.9 AST 56 H D ALT 34 Alkaline Phosphatase 65 Troponin I 0.0120 Total Protein 7.4 Albumin 4.1 Globulin 3.3 Albumin/Globulin Ratio 1.2 Attending/Attestation - Attestation I have personally seen and examined this patient.: Yes I have fully participated in the care of the patient.: Yes I have reviewed all pertinent clinical information: Yes Notes (Text): Patient seen, examined, and case discussed with day-time resident. Patient was initially called as a code heart given questionable ST elevations on EKG. Responded to patient as initial code heart in the ED given EKG with possible ST elevations. Patient had recieved Aspirin 324mg by [facility]. feed project engineer reviewed EKG, cancelled code heart per board operator. Discussed with EMS, patient was found unresponsive, checked fasting sugar:50, given amp d50 in the field around 11:30AM, reports a friend living at the facility had called 911 because she hadnt heard from the patient who had asked her to get her some fruit. Patient's mental status improved at bedside during initial code heart. Patient is awake, and alert. Patient's sister Natalya present at bedside, reports sister appears at her baseline, asking where her wallet with sensitive information including social security which was being held by EMS , discussed with supercharge repair supervisor nurse Jean to help with sister to secure patient's belonging. Patient seen again with admitting resident at 2:30PM. Patient is awake, alert, aware she is at the hospital. She reports she took Lantus 15 units last night, reports she ate half a bagel this morning with butter, took her Novolog 8 units this morning. She had called her friend to get her fruit and then she passed out. Patient was recently started on insulin about two weeks ago. She has her follow- up tomorrow with Dr. Marah Canada. Patient reports she took her Jauvia, Lipitor this morning svetlana ddition to her insulin. Patient advised at bedside, she is giving herself too much insulin at night and did not eat enough this morning. Head Ct: negative for acute findings. Generalized atrophy, Nonspecific white matter changes. Chest xray (10/31/17): no focal consolidation, significant pleural effusion, definite pneumothorac identified. Assessment/Plan (1) Syncope secondry to hypoglycemia Status: Acute Comment: * Likely secondary to hypoglycemic episode. * CT scan- 10/31/17- generalized atrophy, nonspecific whitematter changes. * CXR- 10/31/17- normal. * Carotid Dopplers- prelim- normal. * Observe on telemetry. f/u ROMIs, EKGs, TSH. * Monitor accucheck ACHS * Will check orthostatics * Order for d-dimer (3) Uncontrolled diabetes mellitus Status: Chronic Comment: * Will start patient on Lantus 10U qHS (per d/c summary, patient was to take 12 units, not 15 units at night). * hold pre-meal insulin today * accuchecks ACHS. * ADA diet * f/u hgbA1C * patient reports she has a sugar diary but she left at home with her. (4) History of hyperlipidemia Status: Acute Comment: * Continue Crestor 20mg qHS; given patient's Lipitor not available on hospital formulary. f/u lipid panel (5) History of hypertension Status: Chronic Comment: * Will start patient on Losartan 25mg PO Daily * Patient reports she is not taking any of her anti-hypertensives medications (6) Abnormal EKG Status: Comment: * Code heart/cancelled code heart 10/31/17 * As per cardio, ST elevations on initial EKG likely due to early repolarization. * Consult cardio- Dr. Morgan (personal survey director). Was initially evaluated by Dr. Alberts. Stress test from 06/2017 was normal. Troponin negative x1. f/u troponins/ EKGs x 2 (7) Prophylactic measure Status: Acute Comment: * Protonix 40mg PO Daily. SCDs. Heparin 5000U SC Q12h * Physical therapy
[2017-10-31] MEDS: Pantoprazole 40 mg EC Tab PO SCH (15:50)
[2017-10-31] MEDS ORDERED: Pantoprazole 40 mg EC Tab PO ONE (15:51)
[2017-10-31 20:15] LABS: TROPONIN I 0.012 ng/mL (0.00-0.120)
[2017-11-01 05:38] LABS: BASO % 0.2 % (0.0-2.0); EOS # 0.2 K/uL (0.0-0.7); LYMPH % 12.5 % (20.0-40.0); MEAN CELL VOLUME 98.3 fL (81.0-99.0); MEAN CORPUSCULAR HEMOGLOBIN 32.4 pg (27.0-31.0); MEAN CORPUSCULAR HGB CONC 32.9 g/dL (33.0-37.0); MEAN PLATELET VOLUME 8.3 fL (7.2-11.7); MONO # 0.8 K/uL (0.0-0.8); MONO % 10.5 % (0.0-10.0); NRBC % 0.1 % (0.0-2.0); RED CELL DISTRIBUTION WIDTH 15.3 % (11.5-14.5); WHITE BLOOD COUNT 7.8 K/uL (4.8-10.8)
[2017-11-01 06:35] LABS: ALB/GLOB RATIO 1.2 (1.0-2.1); ALKALINE PHOSPHATASE 62 U/L (38-126); ALT/SGPT 42 U/L (9-52); AST/SGOT 25 U/L (14-36); BILIRUBIN,TOTAL 0.4 mg/dL (0.2-1.3); BLOOD UREA NITROGEN 14 mg/dL (7-17); CALCIUM 8.9 mg/dl (8.6-10.4); CARBON DIOXIDE 26 mmol/L (22-30); CHLORIDE 108 mmol/L (98-107); CHOLESTEROL 134 mg/dL (0-199); GFR AFRICAN-AMERICAN > 60; GLUCOSE,RANDOM 173 mg/dL (65-105); POTASSIUM 3.7 mmol/L (3.6-5.2); SODIUM 141 mmol/L (132-148); TOTAL PROTEIN 5.6 g/dL (6.3-8.3)
[2017-11-01 06:37] LABS: THYROID STIMULATING HORMONE 0.45 mIU/L (0.46-4.68)
[2017-11-01] MEDS: Pantoprazole 40 mg EC Tab PO SCH (10:13)
[2017-11-01] MEDS ORDERED: Iodixanol 320 mg/ml 150 ml Bottle IV ONE (10:54)
--- NOTE | 2017-11-01 11:43 | CT ---
PROCEDURE: CT Chest with contrast (Pulmonary Angiogram) HISTORY: elevated d-dimer COMPARISON: None available. TECHNIQUE: Axial computed tomography images were obtained of the chest in the pulmonary arterial phase of enhancement. Coronal and sagittal reformatted images were created and reviewed. Intravenous contrast dose: 100 mL Visipaque Radiation dose: Total exam DLP = 179.19 mGy-cm. This CT exam was performed using one or more of the following dose reduction techniques: Automated exposure control, adjustment of the mA and/or kV according to patient size, and/or use of iterative reconstruction technique. FINDINGS: PULMONARY ARTERIES: There are no filling defects in the pulmonary arteries to suggest acute pulmonary embolism. The pulmonary trunk is normal in caliber. AORTA: The aorta is normal in caliber. No aortic dissection. LUNGS: The lungs are well inflated. There is patchy ground-glass attenuation in the lungs. No focal consolidation. There are no endobronchial lesions. There is dependent atelectasis in the posterior lower lobes. There is linear atelectasis in the anterior and medial right middle lobe. PLEURAL SPACES: No effusion or pneumothorax. HEART: The heart is normal in size. No pericardial effusion. There are atherosclerotic calcifications in the coronary arteries LYMPH NODES: Subcentimeter mediastinal lymph nodes are likely reactive in etiology. BONES, CHEST WALL: Mild diffuse bone demineralization and multilevel degenerative disc disease. No fracture or destructive lesion OTHER FINDINGS: There is a small sliding hiatal hernia. IMPRESSION: 1. No CT evidence for acute pulmonary embolism. 2. Patchy ground-glass attenuation in the lungs is nonspecific and could represent nonspecific infection/inflammation. No focal consolidation, pleural effusion or pneumothorax.
[2017-11-01] MEDS: (Novolin R) Insulin Human Regular 100 units/ml vial SC SCH ×3 (13:12→21:17)
--- NOTE | 2017-11-01 13:44 | VASCLAB ---
PROCEDURE: HISTORY: syncopal episode, ams COMPARISON: None available. TECHNIQUE: Grayscale and duplex Doppler evaluation of the cervical carotid and vertebral arteries were performed. The common carotid, carotid bifurcations and cervical Internal Carotid Artery (ICA) and proximal External Carotid Artery (ECA) were evaluated. The vertebral arteries were evaluated for gross patency and flow direction. Report prepared by Branden Lynn, BS, RVT FINDINGS: RIGHT CAROTID ARTERIES: 1. Common Carotid Artery: No significant focal plaque formation of the right common carotid artery. Maximum Peak Systolic velocity: 61 cm/sec: End-diastolic velocity 9 cm/sec. 2. Carotid Bifurcation: plaque formation. Maximum Peak Systolic velocity: 59 cm/sec: End-diastolic velocity 6 cm/sec. 3. Internal Carotid Artery: Plaque description: 3.1. Proximal Segment: Peak systolic velocity 67 cm/sec: End-diastolic velocity 16 cm/sec - % stenosis 0-15% 3.2. Middle Segment: Peak systolic velocity 111 cm/sec: End-diastolic velocity 27 cm/sec - % stenosis 0-15% 3.3. Distal Segment: Peak systolic velocity 114 cm/sec: End-diastolic velocity 26 cm/sec - % stenosis 0-15% 4. External Carotid Artery: No significant focal plaque formation. Peak systolic velocity 72 cm/sec 5. ICA/CCA Ratio: 1.9 LEFT CAROTID ARTERIES: 1. Common Carotid Artery: No significant focal plaque formation of the left common carotid artery. Maximum Peak Systolic velocity: 61 cm/sec: End-diastolic velocity 8 cm/sec. 2. Carotid Bifurcation: plaque formation. Maximum Peak Systolic velocity: 61 cm/sec: End-diastolic velocity 10 cm/sec. 3. Internal Carotid Artery: Plaque description: 3.1. Proximal Segment: Peak systolic velocity 81 cm/sec: End-diastolic velocity 18 cm/sec - % stenosis 0-15% 3.2. Middle Segment: Peak systolic velocity 98 cm/sec: End-diastolic velocity 23 cm/sec - % stenosis 0-15% 3.3. Distal Segment: Peak systolic velocity 118 cm/sec: End-diastolic velocity 25 cm/sec - % stenosis 0-15% 4. External Carotid Artery: No significant focal plaque formation. Peak systolic velocity 64 cm/sec 5. ICA/CCA Ratio: 1.9 VERTEBRAL ARTERIES: 1. Right Vertebral Artery: The right vertebral artery flow direction is antegrade. 2. Left Vertebral Artery: The left vertebral artery flow direction is antegrade. OTHER FINDINGS: 1. Right Brachial Blood pressure: 152 mmHg. 2. Left Brachial Blood pressure: 148 mmHg. IMPRESSION: RIGHT: Duplex scan does not suggest hemodynamically significant stenosis of the right extracranial carotid arteries. LEFT: Duplex scan does not suggest hemodynamically significant stenosis of the left extracranial carotid arteries.
--- NOTE | 2017-11-01 13:49 | VASCLAB ---
PROCEDURE: Lower Extremity Venous Duplex Exam. HISTORY: Elevated d-dimer PRIORS: None. TECHNIQUE: Bilateral common femoral, femoral, popliteal and posterior tibial, peroneal and great saphenous veins were evaluated. Flow was assessed with color Doppler, compressibility, assessment of phasic flow and augmentation response. Report prepared by CATA Cormier FINDINGS: RIGHT: 1. Common Femoral Vein: 1.1. Compressibility - Fully compressible: Thrombus - None : Flow - Phasic: Augmentation -Normal: Reflux - None. 2. Femoral Vein: 2.1. Compressibility - Fully compressible: Thrombus - None : Flow - Phasic: Augmentation -Normal: Reflux - None. 3. Popliteal Vein: 3.1. Compressibility - Fully compressible: Thrombus - None : Flow - Phasic: Augmentation -Normal: Reflux - None. 4. Posterior Tibial Vein: 4.1. Compressibility - Fully compressible: Thrombus - None: Flow - Phasic: Augmentation -Normal: Reflux - None. 5. Peroneal Vein: 5.1. Compressibility - Fully compressible: Thrombus - None: Flow - Phasic: Augmentation -Normal: Reflux - None. 6. Great Saphenous Vein: 6.1. Compressibility - Fully compressible: Thrombus - None: Flow - Phasic: Augmentation - Normal: Reflux - None. LEFT: 1. Common Femoral Vein: 1.1. Compressibility - Fully compressible: Thrombus - None: Flow - Phasic: Augmentation -Normal: Reflux - None. 2. Femoral Vein: 2.1. Compressibility - Fully compressible: Thrombus - None: Flow - Phasic: Augmentation -Normal: Reflux - None. 3. Popliteal Vein: 3.1. Compressibility - Fully compressible: Thrombus - None : Flow - Phasic: Augmentation -Normal: Reflux - None. 4. Posterior Tibial Vein: 4.1. Compressibility - Fully compressible: Thrombus - None: Flow - Phasic: Augmentation -Normal: Reflux - None. 5. Peroneal Vein: 5.1. Compressibility - Fully compressible: Thrombus - None: Flow - Phasic: Augmentation -Normal: Reflux - None. 6. Great Saphenous Vein: 6.1. Compressibility - Fully compressible: Thrombus - None: Flow - Phasic: Augmentation - Normal: Reflux - None. OTHER FINDINGS: Small caliber veins noted, bilaterally. IMPRESSION: Right: No evidence of deep or superficial vein thrombosis of the right lower extremity. Normal valve function noted of the right side. Left: No evidence of deep or superficial vein thrombosis of the left lower extremity. Normal valve function noted of the left side.
--- NOTE | 2017-11-01 16:33 | CP.PCM.PN ---
<Alice Quintanilla - Last Filed: 11/01/17 17:56> Subjective - Date & Time of Evaluation Date of Evaluation: 11/01/17 Time of Evaluation: 16:33 - Subjective Subjective: Medicine Progress Note for Dr. Torres Patient was seen and examined at bedside in no acute distress. Patient reports feeling better and has no complaints. Patient is alert and orientedx3. Patient denies having chest pain, abdominal pain, shortness of breath, nausea, vomiting , headaches, and fevers. Objective - Vital Signs/Intake and Output Vital Signs (last 24 hours): Temp Pulse Resp BP Pulse Ox 97.4 F L 75 20 165/71 H 96 11/01/17 15:52 11/01/17 15:52 11/01/17 15:52 11/01/17 15:52 11/01/17 15:52 Intake and Output: 11/01/17 11/01/17 06:59 18:59 Output Total 600 Balance -600 - Medications Medications: Current Medications Aspirin (Ecotrin) 81 mg PO DAILY [facility] Last Admin: 11/01/17 10:13 Dose: 81 mg Heparin Sodium (Porcine) (Heparin) 5,000 units SC Q12 [facility] Last Admin: 11/01/17 10:13 Dose: 5,000 units Insulin Glargine (Lantus) 10 unit SC HS [facility] Insulin Human Regular (Novolin R) 0 unit SC ACHS [facility] PRN Reason: Protocol Last Admin: 11/01/17 13:12 Dose: 5 unit Losartan Potassium (Cozaar) 25 mg PO DAILY [facility] Last Admin: 11/01/17 10:13 Dose: 25 mg Pantoprazole Sodium (Protonix Ec Tab) 40 mg PO DAILY [facility] Last Admin: 11/01/17 10:13 Dose: 40 mg Rosuvastatin Calcium (Crestor) 20 mg PO HS [facility] Last Admin: 10/31/17 21:38 Dose: 20 mg - Labs Labs: 11/01/17 05:33 11/01/17 05:33 PT 10.0 SECONDS (9.7-12.2) 10/31/17 12:32 INR 0.9 10/31/17 12:32 APTT 35 SECONDS (21-34) H 10/31/17 12:32 - Constitutional Appears: No Acute Distress - Head Exam Head Exam: ATRAUMATIC, NORMAL INSPECTION - Eye Exam Eye Exam: EOMI, Normal appearance - ENT Exam ENT Exam: Mucous Membranes Moist - Respiratory Exam Respiratory Exam: Clear to Ausculation Bilateral, NORMAL BREATHING PATTERN. absent: Rales, Rhonchi, Wheezes, Respiratory Distress - Cardiovascular Exam Cardiovascular Exam: REGULAR RHYTHM, +S1, +S2 - GI/Abdominal Exam GI & Abdominal Exam: Soft, Normal Bowel Sounds. absent: Distended, Firm, Guarding, Tenderness - Extremities Exam Extremities Exam: Normal Inspection - Neurological Exam Neurological Exam: Alert, Awake, Oriented x3 - Psychiatric Exam Psychiatric exam: Normal Affect, Normal Mood - Skin Skin Exam: Dry, Intact, Normal Color, Warm Assessment and Plan (1) Syncope Status: Acute (2) Altered mental state Status: Acute (3) Uncontrolled diabetes mellitus Status: Acute (4) History of hyperlipidemia Status: Acute (5) History of hypertension Status: Acute (6) ST elevation Status: Acute (7) Prophylactic measure Status: Acute - Assessment and Plan (Free Text) Plan: (1) Syncope Assessment and Plan: * Likely secondary to hypoglycemic episode. * CT scan- 10/31/17- generalized atrophy, nonspecific white matter changes. * CXR- 10/31/17- normal. * Carotid Dopplers- normal. * Monitor on telemetry. * ROMIs negative x3 * EKG: NSR with premature atrial complexes * TSH 0.45 * Monitor accucheck ACHS * Head CT: generalized atropy; nonspecific white matter changes * D-Dimer: 1853 * CTA: no PE * Venous dopplers: negative * Echo: f/u results (2) Altered mental state Assessment and Plan: * See plan for Syncope. (3) Uncontrolled diabetes mellitus Assessment and Plan: * Continue Lantus 10U qHS. * ISS low * Accuchecks ACHS. * ADA diet * HgbA1C: 10 (4) History of hyperlipidemia Assessment and Plan: * Continue Crestor 20mg qHS. * Lipid panel: TG 98, Cholesterol 134, LDL 68, HDL 41 (5) History of hypertension Assessment and Plan: * Continue Losartan 25mg PO Daily (6) ST elevation Assessment and Plan: * Cardiology consulted- Dr Morgan, help appreciated. 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 Alberts * As per cardio, ST elevations on initial EKG likely due to early repolarization. * Stress test from 06/2017 was normal. * ROMIs negative x3 * EKG: NSR with premature atrial complexes * Continue to monitor on telemetry (7) Prophylactic measure Assessment and Plan: * Protonix 40mg PO Daily. SCDs. * Heparin 5000U SC Q12h * Heart Healthy Diet <Stephanie Torres V - Last Filed: 11/01/17 22:00> Objective - Vital Signs/Intake and Output Vital Signs (last 24 hours): Temp Pulse Resp BP Pulse Ox 97.4 F L 85 20 131/79 96 11/01/17 15:52 11/01/17 20:25 11/01/17 15:52 11/01/17 18:00 11/01/17 15:52 Intake and Output: 11/01/17 11/02/17 18:59 06:59 Output Total 600 Balance -600 - Medications Medications: Current Medications Aspirin (Ecotrin) 81 mg PO DAILY [facility] Last Admin: 11/01/17 10:13 Dose: 81 mg Heparin Sodium (Porcine) (Heparin) 5,000 units SC Q12 [facility] Last Admin: 11/01/17 21:22 Dose: 5,000 units Insulin Glargine (Lantus) 10 unit SC HS [facility] Last Admin: 11/01/17 21:22 Dose: 10 units Insulin Human Regular (Novolin R) 0 unit SC ACHS [facility] PRN Reason: Protocol Last Admin: 11/01/17 21:17 Dose: Not Given Losartan Potassium (Cozaar) 50 mg PO DAILY [facility] Pantoprazole Sodium (Protonix Ec Tab) 40 mg PO DAILY [facility] Last Admin: 11/01/17 10:13 Dose: 40 mg Rosuvastatin Calcium (Crestor) 20 mg PO HS [facility] Last Admin: 11/01/17 21:22 Dose: 20 mg - Labs Labs: 11/01/17 05:33 11/01/17 05:33 PT 10.0 SECONDS (9.7-12.2) 10/31/17 12:32 INR 0.9 10/31/17 12:32 APTT 35 SECONDS (21-34) H 10/31/17 12:32 Attending/Attestation - Attestation I have personally seen and examined this patient.: Yes I have fully participated in the care of the patient.: Yes I have reviewed all pertinent clinical information, including history, physical exam and plan: Yes Notes (Text): Patient seen, examined and case discussed with day-time resident. Patient reports she is feeling better. Patient seen following completion of CT angio this morning. Patient reports appetite is better. Patient has better coloring and looks better hydrated. Discussed with Dr. Morgan today, recommending for echocardiogram. patient's sugar uncontrolled during the day. Start low dose insulin coverage to see how much she uses. Physical therapy eval recommending for subacute rehab. Occupational eval placed. Changed place status for inpatient given patient will need continue rehab Assessment/Plan (1) Syncope secondry to hypoglycemia Status: Acute Comment: * Likely secondary to hypoglycemic episode. * CT scan- 10/31/17- generalized atrophy, nonspecific whitematter changes. * CXR- 10/31/17- normal. * Carotid Dopplers- prelim- normal. * Observe on telemetry. f/u ROMIs, EKGs, TSH. * Monitor accucheck ACHS * Will check orthostatics * D-dimer elevated * Ct angio (11/01/17): no CT evidence for acute pulmonary embolism. Patchy ground-glass attenuation in the lungs is nonspecific and could represent nonspecific infection/inflammation. No focal consolidation, pleural effusion, or pneumothorac * Venous doppler lower extremity: negative DVTs b/l (3) Uncontrolled diabetes mellitus Status: Chronic Comment: * Will start patient on Lantus 10U qHS (per d/c summary, patient was to take 12 units, not 15 units at night). * Start low dose regular insulin subq coverage * accuchecks ACHS. * ADA diet * hgbA1C: 10.0 * patient reports she has a sugar diary but she left at home with her. * Lipid panel: within normal limit (4) History of hyperlipidemia Status: Chronic Comment: * Continue Crestor 20mg qHS; given patient's Lipitor not available on hospital formulary. * Lipid Panel: within normal limit (5) History of hypertension Status: Chronic Comment: * Uncontrolled * Will start patient on Losartan 25mg PO Daily; given additional dose of Losartan 25mg PO today * Will start Losartan 50mg PO daily to control blood pressure * Patient reports she is not taking any of her anti-hypertensives medications (6) Abnormal EKG Status: Comment: * Code heart/cancelled code heart 10/31/17 * As per cardio, ST elevations on initial EKG likely due to early repolarization. * Consult cardio- Dr. Morgan (personal marine architect). Was initially evaluated by Dr. Alberts. Stress test from 06/2017 was normal. Troponin negative x1. f/u troponins/ EKGs x 3 * Discussed with Dr. Morgan today, patient ordered for echocardiogram; pending echocardiogram (7) Gait Abnormality Status: Comment: * Physical therapy: subacute rehab * Occupational therapy eval (7) Prophylactic measure Status: Acute Comment: * Protonix 40mg PO Daily. SCDs. Heparin 5000U SC Q12h * Physical therapy eval: subacute rehab Disposition: Changed to inpatient status given gait abnormality requiring rehab and pending echocardiogram
[2017-11-01] MEDS: (Lantus) Insulin Glargine, Recombinant SC SCH (21:22)
--- NOTE | 2017-11-01 21:45 | CARD ---
APPROVED REPORT EKG Measurement Heart [id number] <Conclusion> Sinus rhythm with premature atrial complexes Otherwise normal ECG
--- NOTE | 2017-11-01 21:55 | CARD ---
APPROVED REPORT EKG Measurement Heart [id number] <Conclusion> Sinus rhythm with APCs ST elevation, probably due to early repolarization Borderline ECG
[2017-11-01] MEDS ORDERED: (Novolog) Insulin Aspart, Recombinant 100 u/ml 10 ml vial SC SCH (22:00)
--- NOTE | 2017-11-02 06:54 | CP.PCM.PN ---
<Alice Quintanilla - Last Filed: 11/02/17 11:19> Subjective - Date & Time of Evaluation Date of Evaluation: 11/02/17 Time of Evaluation: 06:54 - Subjective Subjective: Medicine Progress Note for Dr. Torres Patient was seen and examined at bedside in no acute distress. Patient was also later seen in wheelchair in hallway. Patient reports feeling fine and has no complaints. No events overnight were noted. Patient denies having chest pain, abdominal pain, shortness of breath, nausea, vomiting, fevers, and headaches. Objective - Vital Signs/Intake and Output Vital Signs (last 24 hours): Temp Pulse Resp BP Pulse Ox 98.7 F 82 20 122/73 98 11/01/17 23:00 11/01/17 23:25 11/01/17 23:00 11/01/17 23:00 11/01/17 23:00 Intake and Output: 11/01/17 11/02/17 18:59 06:59 Intake Total 500 Output Total 600 Balance -600 500 - Medications Medications: Current Medications Aspirin (Ecotrin) 81 mg PO DAILY [facility] Last Admin: 11/01/17 10:13 Dose: 81 mg Heparin Sodium (Porcine) (Heparin) 5,000 units SC Q12 [facility] Last Admin: 11/01/17 21:22 Dose: 5,000 units Insulin Glargine (Lantus) 10 unit SC HS [facility] Last Admin: 11/01/17 21:22 Dose: 10 units Insulin Human Regular (Novolin R) 0 unit SC ACHS [facility] PRN Reason: Protocol Last Admin: 11/01/17 21:17 Dose: Not Given Losartan Potassium (Cozaar) 50 mg PO DAILY [facility] Pantoprazole Sodium (Protonix Ec Tab) 40 mg PO DAILY [facility] Last Admin: 11/01/17 10:13 Dose: 40 mg Rosuvastatin Calcium (Crestor) 20 mg PO HS [facility] Last Admin: 11/01/17 21:22 Dose: 20 mg - Labs Labs: 11/01/17 05:33 11/01/17 05:33 PT 10.0 SECONDS (9.7-12.2) 10/31/17 12:32 INR 0.9 10/31/17 12:32 APTT 35 SECONDS (21-34) H 10/31/17 12:32 - Additional Findings Additional findings: - Constitutional Appears: No Acute Distress - Head Exam Head Exam: ATRAUMATIC, NORMAL INSPECTION - Eye Exam Eye Exam: EOMI, Normal appearance - ENT Exam ENT Exam: Mucous Membranes Moist - Respiratory Exam Respiratory Exam: Clear to Ausculation Bilateral, NORMAL BREATHING PATTERN. absent: Rales, Rhonchi, Wheezes, Respiratory Distress - Cardiovascular Exam Cardiovascular Exam: REGULAR RHYTHM, +S1, +S2 - GI/Abdominal Exam GI & Abdominal Exam: Soft, Normal Bowel Sounds. absent: Distended, Firm, Guarding, Tenderness - Extremities Exam Extremities Exam: Normal Inspection - Neurological Exam Neurological Exam: Alert, Awake, Oriented x3 - Psychiatric Exam Psychiatric exam: Normal Affect, Normal Mood - Skin Skin Exam: Dry, Intact, Normal Color, Warm Assessment and Plan (1) Syncope Status: Acute (2) Altered mental state Status: Acute (3) Uncontrolled diabetes mellitus Status: Acute (4) History of hyperlipidemia Status: Acute (5) History of hypertension Status: Acute (6) ST elevation Status: Acute (7) Prophylactic measure Status: Acute - Assessment and Plan (Free Text) Plan: (1) Syncope Assessment and Plan: * Likely secondary to hypoglycemic episode. * CT scan- 10/31/17- generalized atrophy, nonspecific white matter changes. * CXR- 10/31/17- normal. * Carotid Dopplers- normal. * Monitor on telemetry. * ROMIs negative x3 * EKG: NSR with premature atrial complexes * TSH 0.45 * Monitor accucheck ACHS * Head CT: generalized atropy; nonspecific white matter changes * D-Dimer: 1853 * CTA: no PE * Venous dopplers: negative * Echo: f/u results (2) Uncontrolled diabetes mellitus Assessment and Plan: * Continue Lantus 10U qHS. * ISS low * Accuchecks ACHS. * ADA diet * HgbA1C: 10 (3) History of hyperlipidemia Assessment and Plan: * Continue Crestor 20mg qHS. * Lipid panel: TG 98, Cholesterol 134, LDL 68, HDL 41 (4) History of hypertension Assessment and Plan: * Continue Losartan 25mg PO Daily (5) ST elevation Assessment and Plan: * Cardiology consulted- Dr Morgan, help appreciated. 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 Alberts * As per cardio, ST elevations on initial EKG likely due to early repolarization. * Stress test from 06/2017 was normal. * ROMIs negative x3 * EKG: NSR with premature atrial complexes * Continue to monitor on telemetry * Echo: f/u results (6) Prophylactic measure Assessment and Plan: * Protonix 40mg PO Daily. SCDs. * Heparin 5000U SC Q12h * Heart Healthy Diet Disposition: Patient is waiting for placement in [facility] and for echo results and childbirth and infant care teacher's recommendations. <Stephanie Torres V - Last Filed: 11/03/17 06:34> Objective - Vital Signs/Intake and Output Vital Signs (last 24 hours): Temp Pulse Resp BP Pulse Ox 98.3 F 77 20 93/56 L 95 11/02/17 23:35 11/03/17 03:38 11/02/17 23:35 11/02/17 23:35 11/02/17 23:35 Intake and Output: 11/02/17 11/03/17 18:59 06:59 Intake Total 658 Balance 658 - Medications Medications: Current Medications Aspirin (Ecotrin) 81 mg PO DAILY [facility] Last Admin: 11/02/17 10:55 Dose: 81 mg Lactated Ringer's (Lactated Ringer's) 1,000 mls @ 75 mls/hr IV .[id number] [facility] Last Admin: 11/02/17 14:15 Dose: 75 mls/hr Heparin Sodium/Sodium Chloride (Heparin 24139 Units/250ml 1/2 Normal Saline) 25 ,000 units in 250 mls @ 5.987 mls/hr IV .Q24H PRN; Protocol; 12 UNITS/KG/HR PRN Reason: PROTOCOL Insulin Glargine (Lantus) 10 unit SC HS [facility] Last Admin: 11/02/17 22:21 Dose: Not Given Insulin Human Regular (Novolin R) 0 unit SC ACHS [facility] PRN Reason: Protocol Last Admin: 11/02/17 22:21 Dose: Not Given Losartan Potassium (Cozaar) 50 mg PO DAILY [facility] Last Admin: 11/02/17 10:55 Dose: 50 mg Metoprolol Tartrate (Lopressor) 25 mg PO BID [facility] Last Admin: 11/02/17 17:50 Dose: 25 mg Pantoprazole Sodium (Protonix Ec Tab) 40 mg PO DAILY [facility] Last Admin: 11/02/17 10:55 Dose: 40 mg Rosuvastatin Calcium (Crestor) 20 mg PO HS [facility] Last Admin: 11/02/17 22:39 Dose: 20 mg - Labs Labs: 11/02/17 07:27 11/02/17 07:27 PT 10.0 SECONDS (9.7-12.2) 10/31/17 12:32 INR 0.9 10/31/17 12:32 APTT 35 SECONDS (21-34) H 10/31/17 12:32 Attending/Attestation - Attestation I have personally seen and examined this patient.: Yes I have fully participated in the care of the patient.: Yes I have reviewed all pertinent clinical information, including history, physical exam and plan: Yes Notes (Text): This is late computer entry for 11/02/17. Patient seen, examined and case discussed with day-time resident. Patient seen multiple times during the day. Spoke with physical therapy following patient's session, recommended for subacute rehab. patient is amenable to rehab. Denies acute complaints. She reports she is feeling better. Patient re-evaluated in afternoon following heart rate in 110-130s on monitor. patient is asymptomatic of her heart rate. She is not in acute distress. Repeat EKG and NICKI ordered in spite of nursing note suggesting no new orders were placed. Also, noted I discussed with her childbirth and infant care teacher, Dr. Morgan, who reviewed EKG, no acute findings noted and given CT angio r/o PE and dopplers r/o DVT, recommend for thyroid studies and start Lopressor 25mg PO BID (hold SBP< 100 and HR<60) which were also placed which again in spite of nursing note suggesting no new orders placed since I personally placed them myself at the time of the event. Patient has completed echocardiogram. Awaiting official read. Pending CT abdomen/pelvis to rule out occult malignancy given elevated d-dimer. patient started on gentle IV hydration since she completed CT angio the day prior to prevent contrast induced nephropathy. Discussed with case management, looking at three options for rehab placement. Assessment/Plan (1) Acute encephalopathy likely secondary to hypoglycemia Status: Acute Comment: * Likely secondary to hypoglycemic episode. patient is back to baseline. * CT scan- 10/31/17- generalized atrophy, nonspecific whitematter changes. * CXR- 10/31/17- normal. * Carotid Dopplers- prelim- normal. * Observe on telemetry * Monitor accucheck ACHS * Will check orthostatics * D-dimer elevated * Ct angio (11/01/17): no CT evidence for acute pulmonary embolism. Patchy ground-glass attenuation in the lungs is nonspecific and could represent nonspecific infection/inflammation. No focal consolidation, pleural effusion, or pneumothorac * Venous doppler lower extremity: negative DVTs b/l (3) Uncontrolled diabetes mellitus Status: Chronic Comment: * Will start patient on Lantus 10U qHS (per d/c summary, patient was to take 12 units, not 15 units at night). * Start low dose regular insulin subq coverage * accuchecks ACHS. * ADA diet * hgbA1C: 10.0 * patient reports she has a sugar diary but she left at home with her. * Lipid panel: within normal limit (4) History of hyperlipidemia Status: Chronic Comment: * Continue Crestor 20mg qHS; given patient's Lipitor not available on hospital formulary. * Lipid Panel: within normal limit (5) History of hypertension Status: Chronic Comment: * Uncontrolled * Will start patient on Losartan 25mg PO Daily; given additional dose of Losartan 25mg PO today * Will start Losartan 50mg PO daily to control blood pressure * Patient reports she is not taking any of her anti-hypertensives medications (6) Abnormal EKG Status: Comment: * Code heart/cancelled code heart 10/31/17 * As per cardio, ST elevations on initial EKG likely due to early repolarization. * Consult cardio- Dr. Morgan (personal childbirth and infant care teacher). Was initially evaluated by Dr. Alberts. Stress test from 06/2017 was normal. Troponin negative x1. f/u troponins/ EKGs x 3 * Discussed with Dr. Morgan today, patient pending official read for echocardiogram (7) Sinus tachycardia Status: Comment: * Ct angio (11/01/17): no CT evidence for acute pulmonary embolism. Patchy ground -glass attenuation in the lungs is nonspecific and could represent nonspecific infection/inflammation. No focal consolidation, pleural effusion, or pneumothorac * Venous doppler lower extremity: negative DVTs b/l * Repeat EKG and ROMIS ordered * Discussed with Dr. Morgan given acute rise in heart rate but patient asymptomatic. * Start Lopressor 25mg PO BID and repeat thyroid studies (8) Elevated D-dimer * Ct angio (12/5/17): no CT evidence for acute pulmonary embolism. Patchy ground -glass attenuation in the lungs is nonspecific and could represent nonspecific infection/inflammation. No focal consolidation, pleural effusion, or pneumothorac * Venous doppler lower extremity: negative DVTs b/l * Ordered for CT abdomen/Pelvis r/o occult malignancy (9) Gait Abnormality Status: Comment: * Physical therapy: subacute rehab * Occupational therapy eval (10) Prophylactic measure Status: Acute Comment: * Protonix 40mg PO Daily. SCDs. Heparin 5000U SC Q12h * Physical therapy eval: subacute rehab Disposition: Pending rehab placement.
[2017-11-02 07:52] LABS: ALB/GLOB RATIO 1.2 (1.0-2.1); ALKALINE PHOSPHATASE 64 U/L (38-126); ALT/SGPT 34 U/L (9-52); AST/SGOT 20 U/L (14-36); BILIRUBIN,TOTAL 0.5 mg/dL (0.2-1.3); BLOOD UREA NITROGEN 14 mg/dL (7-17); CALCIUM 9.1 mg/dl (8.6-10.4); CARBON DIOXIDE 29 mmol/L (22-30); CHLORIDE 107 mmol/L (98-107); GFR AFRICAN-AMERICAN > 60; GLUCOSE,RANDOM 181 mg/dL (65-105); MAGNESIUM 1.7 mg/dL (1.6-2.3); PHOSPHOROUS 2.7 mg/dL (2.5-4.5); POTASSIUM 3.9 mmol/L (3.6-5.2); SODIUM 143 mmol/L (132-148); TOTAL PROTEIN 5.9 g/dL (6.3-8.3)
[2017-11-02 08:01] LABS: BASO % 0.4 % (0.0-2.0); EOS # 0.3 K/uL (0.0-0.7); EOS % 3.6 % (0.0-4.0); HEMATOCRIT 40.9 % (34.0-47.0); LYMPH % 12.6 % (20.0-40.0); MEAN CELL VOLUME 97.4 fL (81.0-99.0); MEAN CORPUSCULAR HEMOGLOBIN 32.3 pg (27.0-31.0); MEAN CORPUSCULAR HGB CONC 33.2 g/dL (33.0-37.0); MEAN PLATELET VOLUME 8.1 fL (7.2-11.7); MONO # 0.7 K/uL (0.0-0.8); MONO % 9.5 % (0.0-10.0); NRBC % 0.1 % (0.0-2.0); WHITE BLOOD COUNT 7.8 K/uL (4.8-10.8)
[2017-11-02] MEDS: (Novolin R) Insulin Human Regular 100 units/ml vial SC SCH ×4 (10:55→22:21)
[2017-11-02] MEDS: Pantoprazole 40 mg EC Tab PO SCH (10:55)
[2017-11-02] MEDS: Lactated Ringer's 1,000 ML IV SCH (14:15)
[2017-11-02] MEDS ORDERED: Lactated Ringer's 1,000 ML IV SCH (14:15)
[2017-11-02 16:16] LABS: THYROID STIMULATING HORMONE 0.92 mIU/L (0.46-4.68)
[2017-11-02 19:27] VITALS: BMI 20.1
[2017-11-02 20:49] LABS: TROPONIN I 0.141 ng/mL (0.00-0.120)
[2017-11-02] MEDS: (Lantus) Insulin Glargine, Recombinant SC SCH (22:21)
--- NOTE | 2017-11-03 00:27 | CP.PCM.CON ---
History of Present Illness - History of Present Illness History of Present Illness: 82 F admitted for syncope Likely secondary to hypoglycemia Past Patient History - Past Medical History & Family History Past Medical History?: Yes - Past Social History Smoking Status: Never Smoked - CARDIAC Hx Hypertension: Yes - PULMONARY Hx Respiratory Disorders: No - NEUROLOGICAL Hx Neurological Disorder: No - HEENT Hx HEENT Problems: No - RENAL Hx Chronic Kidney Disease: No - ENDOCRINE/METABOLIC Hx Endocrine Disorders: Yes Hx Diabetes Mellitus Type 2: Yes - HEMATOLOGICAL/ONCOLOGICAL Hx Blood Disorders: No - INTEGUMENTARY Hx Dermatological Problems: No - MUSCULOSKELETAL/RHEUMATOLOGICAL Hx Musculoskeletal Disorders: Yes Hx Falls: Yes - GASTROINTESTINAL Hx Gastrointestinal Disorders: No - GENITOURINARY/GYNECOLOGICAL Hx Genitourinary Disorders: No - PSYCHIATRIC Hx Substance Use: No - SURGICAL HISTORY Hx Surgeries: No - ANESTHESIA Hx Anesthesia: Yes Hx Anesthesia Reactions: No Hx Malignant Hyperthermia: No Meds Allergies/Adverse Reactions: Allergies Allergy/AdvReac Type Severity Reaction Status Date / Time No Known Allergies Allergy Verified 10/18/17 13:21 - Medications Medications: Current Medications Aspirin (Ecotrin) 81 mg PO DAILY [facility] Last Admin: 11/02/17 10:55 Dose: 81 mg Heparin Sodium (Porcine) (Heparin) 5,000 units SC Q12 [facility] Last Admin: 11/02/17 22:39 Dose: 5,000 units Lactated Ringer's (Lactated Ringer's) 1,000 mls @ 75 mls/hr IV .[id number] [facility] Last Admin: 11/02/17 14:15 Dose: 75 mls/hr Insulin Glargine (Lantus) 10 unit SC [facility] Last Admin: 11/02/17 22:21 Dose: Not Given Insulin Human Regular (Novolin R) 0 unit SC [facility] PRN Reason: Protocol Last Admin: 11/02/17 22:21 Dose: Not Given Losartan Potassium (Cozaar) 50 mg PO DAILY [facility] Last Admin: 11/02/17 10:55 Dose: 50 mg Metoprolol Tartrate (Lopressor) 25 mg PO BID [facility] Last Admin: 11/02/17 17:50 Dose: 25 mg Pantoprazole Sodium (Protonix Ec Tab) 40 mg PO DAILY [facility] Last Admin: 11/02/17 10:55 Dose: 40 mg Rosuvastatin Calcium (Crestor) 20 mg PO HS [facility] Last Admin: 11/02/17 22:39 Dose: 20 mg Results - Vital Signs Recent Vital Signs: Last Vital Signs Temp 102 F H 11/02/17 20:39 Pulse 114 H 11/02/17 20:01 Resp 20 11/02/17 17:20 BP 132/85 11/02/17 17:50 Pulse Ox 96 11/02/17 17:20 - Labs Result Diagrams: 11/02/17 07:27 11/02/17 07:27 Labs: Laboratory Results - last 24 hr 11/02/17 11/02/17 11/02/17 06:54 07:27 07:27 WBC 7.8 RBC 4.20 Hgb 13.6 Hct 40.9 MCV 97.4 MCH 32.3 H MCHC 33.2 RDW 15.0 H Plt Count 297 MPV 8.1 Neut % (Auto) 73.9 Lymph % (Auto) 12.6 L Erath % (Auto) 9.5 Eos % (Auto) 3.6 Baso % (Auto) 0.4 Neut # 5.8 Lymph # 1.0 Erath # 0.7 Eos # 0.3 Baso # 0.0 Sodium 143 Potassium 3.9 Chloride 107 Carbon Dioxide 29 Anion Gap 11 BUN 14 Creatinine 0.8 Est GFR ( Amer) > 60 Est GFR (Non-Af Amer) > 60 POC Glucose (mg/dL) 200 H Random Glucose 181 H Calcium 9.1 Phosphorus 2.7 Magnesium 1.7 Total Bilirubin 0.5 AST 20 ALT 34 Alkaline Phosphatase 64 Total Creatine Kinase CK-MB (Mass) Troponin I Total Protein 5.9 L Albumin 3.2 L Globulin 2.7 Albumin/Globulin Ratio 1.2 Free T4 TSH 3rd Generation 11/02/17 11/02/17 11/02/17 11:10 15:23 15:23 WBC RBC Hgb Hct MCV MCH MCHC RDW Plt Count MPV Neut % (Auto) Lymph % (Auto) Erath % (Auto) Eos % (Auto) Baso % (Auto) Neut # Lymph # Erath # Eos # Baso # Sodium Potassium Chloride Carbon Dioxide Anion Gap BUN Creatinine Est GFR ( Amer) Est GFR (Non-Af Amer) POC Glucose (mg/dL) 342 H Random Glucose Calcium Phosphorus Magnesium Total Bilirubin AST ALT Alkaline Phosphatase Total Creatine Kinase < 20 L CK-MB (Mass) 0.50 Troponin I < 0.0120 Total Protein Albumin Globulin Albumin/Globulin Ratio Free T4 1.54 TSH 3rd Generation 0.92 11/02/17 11/02/17 11/02/17 16:05 19:48 21:10 WBC RBC Hgb Hct MCV MCH MCHC RDW Plt Count MPV Neut % (Auto) Lymph % (Auto) Er[place] % (Auto) Eos % (Auto) Baso % (Auto) Neut # Lymph # Erath # Eos # Baso # Sodium Potassium Chloride Carbon Dioxide Anion Gap BUN Creatinine Est GFR ( Amer) Est GFR (Non-Af Amer) POC Glucose (mg/dL) 307 H 97 Random Glucose Calcium Phosphorus Magnesium Total Bilirubin AST ALT Alkaline Phosphatase Total Creatine Kinase 22 L CK-MB (Mass) 0.71 Troponin I 0.1410 H* Total Protein Albumin Globulin Albumin/Globulin Ratio Free T4 TSH 3rd Generation
[2017-11-03 04:20] LABS: TROPONIN I 0.254 ng/mL (0.00-0.120)
[2017-11-03] MEDS ORDERED: Heparin25000 units/250ml 1/2NS 25,000 UNITS/250 ML BAG IV PRN (05:18)
--- NOTE | 2017-11-03 06:56 | CP.PCM.PN ---
Subjective - Date & Time of Evaluation Date of Evaluation: 11/03/17 Time of Evaluation: 06:56 - Subjective Subjective: Medicine Progress Note for Dr. Torres Patient was seen and examined at bedside in no acute distress. Patient was laying comfortably in bed and has no complaints. Patient denies having chest pain, shortness of breath, abdominal pain, nausea, vomiting, fevers, and leg pain and swelling. Objective - Vital Signs/Intake and Output Vital Signs (last 24 hours): Temp Pulse Resp BP Pulse Ox 98.3 F 77 20 93/56 L 95 11/02/17 23:35 11/03/17 03:38 11/02/17 23:35 11/02/17 23:35 11/02/17 23:35 Intake and Output: 11/02/17 11/03/17 18:59 06:59 Intake Total 658 Balance 658 - Medications Medications: Current Medications Aspirin (Ecotrin) 81 mg PO DAILY [facility] Last Admin: 11/02/17 10:55 Dose: 81 mg Lactated Ringer's (Lactated Ringer's) 1,000 mls @ 75 mls/hr IV .[id number] [facility] Last Admin: 11/02/17 14:15 Dose: 75 mls/hr Heparin Sodium/Sodium Chloride (Heparin 42383 Units/250ml 1/2 Normal Saline) 25 ,000 units in 250 mls @ 5.987 mls/hr IV .Q24H PRN; Protocol; 12 UNITS/KG/HR PRN Reason: PROTOCOL Insulin Glargine (Lantus) 10 unit SC [facility] Last Admin: 11/02/17 22:21 Dose: Not Given Insulin Human Regular (Novolin R) 0 unit SC [facility] PRN Reason: Protocol Last Admin: 11/02/17 22:21 Dose: Not Given Losartan Potassium (Cozaar) 50 mg PO DAILY [facility] Last Admin: 11/02/17 10:55 Dose: 50 mg Metoprolol Tartrate (Lopressor) 25 mg PO BID [facility] Last Admin: 11/02/17 17:50 Dose: 25 mg Pantoprazole Sodium (Protonix Ec Tab) 40 mg PO DAILY [facility] Last Admin: 11/02/17 10:55 Dose: 40 mg Rosuvastatin Calcium (Crestor) 20 mg PO HS [facility] Last Admin: 11/02/17 22:39 Dose: 20 mg - Labs Labs: 11/02/17 07:27 11/02/17 07:27 PT 10.0 SECONDS (9.7-12.2) 10/31/17 12:32 INR 0.9 10/31/17 12:32 APTT 35 SECONDS (21-34) H 10/31/17 12:32 - Additional Findings Additional findings: - Constitutional Appears: No Acute Distress - Head Exam Head Exam: ATRAUMATIC, NORMAL INSPECTION - Eye Exam Eye Exam: EOMI, Normal appearance - ENT Exam ENT Exam: Mucous Membranes Moist - Respiratory Exam Respiratory Exam: Clear to Ausculation Bilateral, NORMAL BREATHING PATTERN. absent: Rales, Rhonchi, Wheezes, Respiratory Distress - Cardiovascular Exam Cardiovascular Exam: REGULAR RHYTHM, +S1, +S2 - GI/Abdominal Exam GI & Abdominal Exam: Soft, Normal Bowel Sounds. absent: Distended, Firm, Guarding, Tenderness - Extremities Exam Extremities Exam: Normal Inspection - Neurological Exam Neurological Exam: Alert, Awake, Oriented x3 - Psychiatric Exam Psychiatric exam: Normal Affect, Normal Mood - Skin Skin Exam: Dry, Intact, Normal Color, Warm Assessment and Plan (1) Syncope Status: Acute (2) Altered mental state Status: Acute (3) Uncontrolled diabetes mellitus Status: Acute (4) History of hyperlipidemia Status: Acute (5) History of hypertension Status: Acute (6) ST elevation Status: Acute (7) Prophylactic measure Status: Acute - Assessment and Plan (Free Text) Plan: (1) Syncope Assessment and Plan: * Likely secondary to hypoglycemic episode. * CT scan- 10/31/17- generalized atrophy, nonspecific white matter changes. * CXR- 10/31/17- normal. * Carotid Dopplers- normal. * Monitor on telemetry. * ROMIs negative x3 * EKG: NSR with premature atrial complexes * TSH 0.45 * Monitor accucheck ACHS * Head CT: generalized atropy; nonspecific white matter changes * D-Dimer: 1853 * CTA: no PE * Venous dopplers LE: negative * Echo: EF78%; f/u official report * Venous dopplers LE: f/u report (2) Uncontrolled diabetes mellitus Assessment and Plan: * Continue Lantus 10U qHS. * ISS low * Accuchecks ACHS. * ADA diet * HgbA1C: 10 (3) History of hyperlipidemia Assessment and Plan: * Continue Crestor 20mg qHS. * Lipid panel: TG 98, Cholesterol 134, LDL 68, HDL 41 (4) History of hypertension Assessment and Plan: * Continue Losartan 25mg PO Daily (5) ST elevation Assessment and Plan: * Cardiology consulted- Dr Morgan, help appreciated. 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 Alberts * As per cardio, ST elevations on initial EKG likely due to early repolarization. * Stress test from 06/2017 was normal. * ROMIs negative x3 at admission * EKG: NSR with premature atrial complexes * Continue to monitor on telemetry * Echo: f/u official report (6) Tachycardia Assessment and Plan: * Continue Lopressor 25mg PO BID * Abdominal/pelvic CT: was performed because of elevated D-dimer and to rule out malignancy--> * EKGs showed sinus rhythm and premature atrial complexes * ROMIs (11/02)- 0.38620, 0.2540 (7) Prophylactic measure Assessment and Plan: * Protonix 40mg PO Daily. SCDs. * Heparin 5000U SC Q12h * Heart Healthy Diet Disposition: On 11/02 in the afternoon, patient developed tachycardia. Lopressor was started. Abdominal/pelvic CT was performed because of elevated D-dimer and to rule out malignancy. ROMIs were positive x2 (0.1410, 0.2540) and EKGs showed sinus rhythm and premature atrial complexes. Discussed patient's status with Dr. Morgan--Patient is scheduled for cardiac cath tomorrow morning. Patient is NPO at midnight. Patient was given two doses of Lovenox on 11/03, and will restart after cath as needed.
[2017-11-03 08:10] LABS: BASO % 0.3 % (0.0-2.0); EOS # 0.2 K/uL (0.0-0.7); EOS % 1.9 % (0.0-4.0); LYMPH # 0.9 K/uL (1.0-4.3); LYMPH % 7.5 % (20.0-40.0); MEAN CELL VOLUME 97.4 fL (81.0-99.0); MEAN CORPUSCULAR HEMOGLOBIN 32.8 pg (27.0-31.0); MEAN CORPUSCULAR HGB CONC 33.7 g/dL (33.0-37.0); MONO # 0.6 K/uL (0.0-0.8); PLATELET COUNT 288 K/uL (130-400); RED CELL DISTRIBUTION WIDTH 15.3 % (11.5-14.5)
[2017-11-03 08:14] LABS: WHITE BLOOD COUNT 12.5 K/uL (4.8-10.8)
[2017-11-03 08:33] LABS: ALB/GLOB RATIO 0.9 (1.0-2.1); ALKALINE PHOSPHATASE 56 U/L (38-126); ALT/SGPT 43 U/L (9-52); AST/SGOT 20 U/L (14-36); BILIRUBIN,TOTAL 0.5 mg/dL (0.2-1.3); BLOOD UREA NITROGEN 15 mg/dL (7-17); CALCIUM 9.2 mg/dl (8.6-10.4); CARBON DIOXIDE 32 mmol/L (22-30); CHLORIDE 105 mmol/L (98-107); GFR AFRICAN-AMERICAN > 60; GLUCOSE,RANDOM 177 mg/dL (65-105); POTASSIUM 4.4 mmol/L (3.6-5.2); SODIUM 141 mmol/L (132-148); TOTAL PROTEIN 6.8 g/dL (6.3-8.3)
[2017-11-03] MEDS ORDERED: Iodixanol 320 MG/ML 100 ML BOTTLE IV ONE (08:39)
[2017-11-03 09:52] LABS: MAGNESIUM 1.6 mg/dL (1.6-2.3); PHOSPHOROUS 3.2 mg/dL (2.5-4.5)
[2017-11-03] MEDS: (Novolin R) Insulin Human Regular 100 units/ml vial SC SCH ×4 (09:52→21:45)
[2017-11-03] MEDS: Pantoprazole 40 mg EC Tab PO SCH (09:52)
[2017-11-03 10:32] LABS: NEUTROPHIL 93 % (50-75); TOTAL CELLS COUNTED 100
[2017-11-03 11:38] LABS: RBC URINE < 1 /hpf (0-3); URINE BILIRUBIN NEGATIVE (NEGATIVE); URINE BLOOD NEGATIVE (NEGATIVE); URINE COLOR Yellow (YELLOW); URINE GLUCOSE (UA) NORMAL (Normal); URINE KETONE TRACE mg/dL (NEGATIVE); URINE LEUKOCYTE ESTERASE 1+ Leu/uL (Negative); URINE PROTEIN NEGATIVE (NEGATIVE); URINE UROBILINOGEN NORMAL mg/dL (0.2-1.0); WBC URINE 11 /hpf (0-5)
[2017-11-03] MEDS: Enoxaparin 60 mg Syringe SC SCH ×3 (12:03→21:49)
--- NOTE | 2017-11-03 12:14 | CT ---
PROCEDURE: CT Abdomen and Pelvis without Oral or IV contrast. HISTORY: elevated d-dimer, ? malignancy COMPARISON: None available. TECHNIQUE: Contiguous axial images of the abdomen and pelvis. No oral or IV contrast administered. Coronal and Sagittal reformats generated and reviewed. Radiation dose: Total exam DLP = 224. 80 mGy-cm. This CT exam was performed using one or more of the following dose reduction techniques: Automated exposure control, adjustment of the mA and/or kV according to patient size, and/or use of iterative reconstruction technique. FINDINGS: There is limited evaluation of the solid organs without the administration of IV contrast. LOWER THORAX: No visible consolidation, pleural effusion, or pneumothorax. LIVER: Unremarkable unenhanced appearance. GALLBLADDER AND BILE DUCTS: Cholelithiasis. PANCREAS: Pancreatic atrophy. SPLEEN: Unremarkable unenhanced appearance. ADRENALS: Unremarkable unenhanced appearance. KIDNEYS AND URETERS: No hydronephrosis or obstructing renal calculus. BLADDER: The urinary bladder appears unremarkable. REPRODUCTIVE: Uterus is present. Numerous coarse enlarged calcified masses evident within the pelvis consistent degenerating uterine fibroids. APPENDIX: The appendix appears within normal limits of caliber. No secondary signs of acute appendicitis. BOWEL: The stomach is nondistended. Lack of oral contrast limits evaluation for bowel pathology. The bowel loops appear within normal limits of caliber without evidence of intestinal obstruction. Moderate constipation. PERITONEUM: No significant free fluid. No definite free air. LYMPH NODES: No bulky lymphadenopathy identified. VASCULATURE: Atherosclerotic calcifications of the aorta. No aortic aneurysm. BONES: Degenerative changes of the spine. Osseous demineralization. OTHER FINDINGS: None. IMPRESSION: Cholelithiasis. Numerous coarse and large calcified masses within the pelvis consistent with degenerating uterine fibroids. Moderate constipation. Additional incidental findings as above.
--- NOTE | 2017-11-03 15:05 | RAD ---
HISTORY: fever COMPARISON: 10/31/2017 FINDINGS: LUNGS: No active pulmonary disease. PLEURA: No significant pleural effusion identified, no pneumothorax apparent. CARDIOVASCULAR: Normal heart size. Aortic knob calcific OSSEOUS STRUCTURES: Lumbar spondylosis. Bilateral calcific rotator cuff tendinopathy and/or calcific bursitis. Bilateral shoulder arthrosis VISUALIZED UPPER ABDOMEN: Normal. OTHER FINDINGS: None. IMPRESSION: No interval pathology
[2017-11-03] MEDS: (Lantus) Insulin Glargine, Recombinant SC SCH (21:45)
--- NOTE | 2017-11-04 00:56 | CARD ---
APPROVED REPORT EXAM: Two-dimensional and M-mode echocardiogram with Doppler and color Doppler. Other Information Quality : GoodRhythm : INDICATION Syncope RISK FACTORS Hypertension Hyperlipidemia Diabetes 2D DIMENSIONS IVSd1.5 (0.7-1.1cm)LVDd2.7 (3.9-5.9cm) PWd1.1 (0.7-1.1cm)LVDs1.6 (2.5-4.0cm) FS (%) 41.9 %LVEF (%)74.8 (>50%) M-Mode DIMENSIONS RVDd1.80 (2.1-3.2cm)Left Atrium (MM)2.74 (2.5-4.0cm) IVSd1.75 (0.7-1.1cm)Aortic Root2.57 (2.2-3.7cm) LVDd2.68 (4.0-5.6cm)Aortic Cusp Exc.1.63 (1.5-2.0cm) PWd0.90 (0.7-1.1cm)FS (%) 45 % LVDs1.47 (2.0-3.8cm)LVEF (%)78 (>50%) Mitral Valve MV E Kiimbxhf29.3cm/sMV A Jppiayhq57.2cm/sE/A ratio0.6 TDI E/Lateral E'0.0E/Medial E'0.0 Tricuspid Valve TR Peak Khpfncdl521fs/sTR Peak Gr.[id number] LEFT VENTRICLE The left ventricle is normal size. There is normal left ventricular wall thickness. The left ventricular function is normal. The left ventricular ejection fraction is within the normal range. No regional wall motion abnormalities noted. Transmitral Doppler flow pattern is Grade I-abnormal relaxation pattern. No left ventricle thrombus noted on this study. There is no ventricular septal defect visualized. There is no left ventricular aneurysm. There is no mass noted in the left ventricle. RIGHT VENTRICLE The right ventricle is normal size. There is normal right ventricular wall thickness. The right ventricular systolic function is normal. ATRIA The left atrium size is normal. The right atrium size is normal. The interatrial septum is intact with no evidence for an atrial septal defect. AORTIC VALVE The aortic valve is mildly sclerotic. No aortic regurgitation is present. There is no aortic valvular stenosis. There is no aortic valvular vegetation. MITRAL VALVE Mitral annular calcification is mild. There is no evidence of mitral valve prolapse. There is no mitral valve stenosis. Mitral regurgitation is mild. There is no mitral valve regurgitation noted. TRICUSPID VALVE The tricuspid valve is normal in structure. There is mild tricuspid regurgitation. There is no tricuspid valve prolapse or vegetation. There is no tricuspid valve stenosis. PULMONIC VALVE The pulmonary valve is normal in structure. There is mild pulmonic valvular regurgitation. There is no pulmonic valvular stenosis. GREAT VESSELS The aortic root is normal in size. The ascending aorta is normal in size. The IVC is normal in size and collapses >50% with inspiration. PERICARDIAL EFFUSION There is no pericardial effusion. There is no pleural effusion. <Conclusion> The left ventricular ejection fraction is within the normal range. Transmitral Doppler flow pattern is Grade I-abnormal relaxation pattern. The aortic valve is mildly sclerotic. Mitral annular calcification is mild. There is mild tricuspid regurgitation. There is mild pulmonic valvular regurgitation.
[2017-11-04] MEDS: Lactated Ringer's 1,000 ML IV SCH (02:20)
[2017-11-04] MEDS: (Novolin R) Insulin Human Regular 100 units/ml vial SC SCH ×3 (07:40→21:51)
[2017-11-04 07:57] LABS: BASO % 0.3 % (0.0-2.0); EOS # 0.2 K/uL (0.0-0.7); EOS % 2.8 % (0.0-4.0); HEMATOCRIT 39.2 % (34.0-47.0); LYMPH # 0.9 K/uL (1.0-4.3); LYMPH % 11.6 % (20.0-40.0); MEAN CELL VOLUME 97.8 fL (81.0-99.0); MEAN CORPUSCULAR HEMOGLOBIN 33.2 pg (27.0-31.0); MEAN CORPUSCULAR HGB CONC 33.9 g/dL (33.0-37.0); MEAN PLATELET VOLUME 8.4 fL (7.2-11.7); MONO # 0.6 K/uL (0.0-0.8); MONO % 7.2 % (0.0-10.0); NRBC % 0.1 % (0.0-2.0); RED CELL DISTRIBUTION WIDTH 14.9 % (11.5-14.5); WHITE BLOOD COUNT 7.9 K/uL (4.8-10.8)
[2017-11-04 08:28] LABS: ALB/GLOB RATIO 1.1 (1.0-2.1); ALKALINE PHOSPHATASE 63 U/L (38-126); ALT/SGPT 38 U/L (9-52); AST/SGOT 20 U/L (14-36); BILIRUBIN,TOTAL 0.3 mg/dL (0.2-1.3); BLOOD UREA NITROGEN 17 mg/dL (7-17); CALCIUM 9.1 mg/dl (8.6-10.4); CARBON DIOXIDE 25 mmol/L (22-30); CHLORIDE 106 mmol/L (98-107); GFR AFRICAN-AMERICAN > 60; GLUCOSE,RANDOM 260 mg/dL (65-105); POTASSIUM 4.2 mmol/L (3.6-5.2); SODIUM 139 mmol/L (132-148); TOTAL PROTEIN 5.6 g/dL (6.3-8.3)
[2017-11-04] MEDS: Pantoprazole 40 mg EC Tab PO SCH (10:39)
--- NOTE | 2017-11-04 12:50 | VASCLAB ---
PROCEDURE: Upper Extremity Venous Duplex Exam HISTORY: Leg pain PRIORS: None. TECHNIQUE: Bilateral upper extremity, internal jugular, subclavian, axillary, brachial, ulnar, radial, basilic and upper cephalic veins were evaluated. Flow was assessed with color Doppler, compressibility, assessment of phasic flow and augmentation response. Report prepared by CATA Cormier FINDINGS: RIGHT: 1. Internal Jugular: 1.1. Compressibility - Fully compressible: Thrombus - None : Flow - Phasic: Augmentation -Normal: Reflux - None. 2. Subclavian: 2.1. Compressibility - Fully compressible: Thrombus - None : Flow - Phasic: Augmentation -Normal: Reflux - None. 3. Axillary: 3.1. Compressibility - Fully compressible: Thrombus - None : Flow - Phasic: Augmentation -Normal: Reflux - None. 4. Brachial: 4.1. Compressibility - Fully compressible: Thrombus - None: Flow - Phasic: Augmentation -Normal: Reflux - None. 5. Ulnar: 5.1. Compressibility - Fully compressible: Thrombus - None: Flow - Phasic: Augmentation -Normal: Reflux - None. 6. Radial: 6.1. Compressibility - Fully compressible: Thrombus - None: Flow - Phasic: Augmentation - Normal: Reflux - None. 7. Cephalic: 7.1. Compressibility - Fully compressible: Thrombus - None: Flow - Phasic: Augmentation -Normal: Reflux - None. 8. Basilic: 8.1. Compressibility - Fully compressible: Thrombus - None: Flow - Phasic: Augmentation -Normal: Reflux - None. LEFT: 1. Internal Jugular: 1.1. Compressibility - Fully compressible: Thrombus - None : Flow - Phasic: Augmentation -Normal: Reflux - None. 2. Subclavian: 2.1. Compressibility - Fully compressible: Thrombus - None : Flow - Phasic: Augmentation -Normal: Reflux - None. 3. Axillary: 3.1. Compressibility - Fully compressible: Thrombus - None : Flow - Phasic: Augmentation -Normal: Reflux - None. 4. Brachial: 4.1. Compressibility - Fully compressible: Thrombus - None: Flow - Phasic: Augmentation -Normal: Reflux - None. 5. Ulnar: 5.1. Compressibility - Fully compressible: Thrombus - None: Flow - Phasic: Augmentation -Normal: Reflux - None. 6. Radial: 6.1. Compressibility - Fully compressible: Thrombus - None: Flow - Phasic: Augmentation - Normal: Reflux - None. 7. Cephalic: 7.1. Compressibility - Fully compressible: Thrombus - None: Flow - Phasic: Augmentation -Normal: Reflux - None. 8. Basilic: 8.1. Compressibility - Fully compressible: Thrombus - None: Flow - Phasic: Augmentation -Normal: Reflux - None. OTHER FINDINGS: Bilateral upper extremity veins are of small caliber. IMPRESSION: Right: No evidence of vein thrombosis of the right upper extremity with excellent venous flow. Normal valve function noted of the right side. Left: No evidence of vein thrombosis of the left upper extremity with excellent venous flow. Normal valve function noted of the left side.
--- NOTE | 2017-11-04 13:24 | CP.PCM.PN ---
Subjective - Date & Time of Evaluation Date of Evaluation: 11/04/17 Time of Evaluation: 09:00 - Subjective Subjective: Medicine Note for Hospitalist Service - Dr. Torres Patient was seen and examined at bedside. No acute complaints. Denied fever, chills, headaches, chest pain, SOB, abdominal pain, n/v/d/c, or urinary symptoms. Objective - Vital Signs/Intake and Output Vital Signs (last 24 hours): Temp Pulse Resp BP Pulse Ox 98.1 F 86 20 144/73 99 11/04/17 07:59 11/04/17 07:59 11/04/17 07:59 11/04/17 07:59 11/04/17 07:59 Intake and Output: 11/04/17 11/04/17 06:59 18:59 Intake Total 600 Output Total 400 Balance 200 - Medications Medications: Current Medications Aspirin (Ecotrin) 81 mg PO DAILY [facility] Last Admin: 11/04/17 10:39 Dose: Not Given Enoxaparin Sodium (Lovenox) 50 mg SC Q12 [facility] Lactated Ringer's (Lactated Ringer's) 1,000 mls @ 75 mls/hr IV .[id number] [facility] Last Admin: 11/04/17 02:20 Dose: 75 mls/hr Ceftriaxone Sodium 1 gm/ (Sodium Chloride) 100 mls @ 100 mls/hr IVPB DAILY [facility] Last Admin: 11/04/17 10:40 Dose: Not Given Insulin Glargine (Lantus) 10 unit SC [facility] Last Admin: 11/03/17 21:45 Dose: Not Given Insulin Human Regular (Novolin R) 0 unit SC [facility] PRN Reason: Protocol Last Admin: 11/04/17 07:40 Dose: Not Given Losartan Potassium (Cozaar) 50 mg PO DAILY [facility] Last Admin: 11/04/17 10:39 Dose: Not Given Metoprolol Tartrate (Lopressor) 25 mg PO BID [facility] Last Admin: 11/04/17 10:39 Dose: Not Given Pantoprazole Sodium (Protonix Ec Tab) 40 mg PO DAILY [facility] Last Admin: 11/04/17 10:39 Dose: Not Given Rosuvastatin Calcium (Crestor) 20 mg PO HS [facility] Last Admin: 11/03/17 21:45 Dose: 20 mg - Labs Labs: 11/04/17 07:33 11/04/17 07:33 PT 10.0 SECONDS (9.7-12.2) 10/31/17 12:32 INR 0.9 10/31/17 12:32 APTT 50 SECONDS (21-34) H D 11/03/17 08:05 - Additional Findings Additional findings: - Constitutional Appears: No Acute Distress - Head Exam Head Exam: ATRAUMATIC, NORMAL INSPECTION - Eye Exam Eye Exam: EOMI, Normal appearance - ENT Exam ENT Exam: Mucous Membranes Moist - Respiratory Exam Respiratory Exam: Clear to Ausculation Bilateral, NORMAL BREATHING PATTERN. absent: Rales, Rhonchi, Wheezes, Respiratory Distress - Cardiovascular Exam Cardiovascular Exam: REGULAR RHYTHM, +S1, +S2 - GI/Abdominal Exam GI & Abdominal Exam: Soft, Normal Bowel Sounds. absent: Distended, Firm, Guarding, Tenderness - Extremities Exam Extremities Exam: Normal Inspection - Neurological Exam Neurological Exam: Alert, Awake, Oriented x3 - Psychiatric Exam Psychiatric exam: Normal Affect, Normal Mood - Skin Skin Exam: Dry, Intact, Normal Color, Warm Assessment and Plan - Assessment and Plan (Free Text) Plan: ST elevation Assessment and Plan: * Cardiology consulted- Dr Morgan, help appreciated. 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 Alberts * As per cardio, ST elevations on initial EKG likely due to early repolarization. * Stress test from 06/2017 was normal. * ROMIs negative x3 at admission * EKG: NSR with premature atrial complexes * Continue to monitor on telemetry * Echo: LVEF 78%, Aortic valve is mildly sclerotic, mild annular calcification, mild TR, mild pulm regurg. * F/U Cardiac Cath results: Syncope Assessment and Plan: * Likely secondary to hypoglycemic episode. * CT scan- 10/31/17- generalized atrophy, nonspecific white matter changes. * CXR- 10/31/17- normal. * Carotid Dopplers- normal. * Monitor on telemetry. * ROMIs negative x3 * EKG: NSR with premature atrial complexes * TSH 0.45 * Monitor accucheck ACHS * Head CT: generalized atropy; nonspecific white matter changes * D-Dimer: 1853 * CTA: no PE * Echo: LVEF 78%, Aortic valve is mildly sclerotic, mild annular calcification, mild TR, mild pulm regurg. * Venous dopplers LE: negative for DVT Uncontrolled diabetes mellitus Assessment and Plan: * Continue Lantus 10U qHS * ISS low * Accuchecks ACHS * ADA diet * HgbA1C: 10 History of hyperlipidemia Assessment and Plan: * Continue Crestor 20mg qHS. * Lipid panel: TG 98, Cholesterol 134, LDL 68, HDL 41 History of hypertension Assessment and Plan: * Continue Losartan 25mg PO Daily Tachycardia Assessment and Plan: * Continue Lopressor 25mg PO BID * Abdominal/pelvic CT: was performed because of elevated D-dimer and to rule out malignancy--> * EKGs showed sinus rhythm and premature atrial complexes * ROMIs (11/02)- 0.45283, 0.2540 Prophylactic measure Assessment and Plan: * Protonix 40mg PO Daily. SCDs. * Heparin 5000U SC Q12h * Heart Healthy Diet Disposition: S/P cardiac cath - discharge pending cath results and HEIDE approval. Colin Schuler Dr., DO, PGY-1
[2017-11-04] MEDS ORDERED: Midazolam 2 MG/2 ML VIAL ONE (18:20)
[2017-11-04] MEDS ORDERED: Iodixanol 320 MG/ML 100 ML BOTTLE IV ONE ×2 (18:23→18:37)
--- NOTE | 2017-11-04 19:04 | CP.PCM.PN ---
Subjective - Date & Time of Evaluation Date of Evaluation: 11/04/17 Time of Evaluation: 19:03 - Subjective Subjective: Patient s/p Cardiac Cath Non obstructive coronaries Normal EF Medical management OOB to ambulate after 10pm tonight Objective - Vital Signs/Intake and Output Vital Signs (last 24 hours): Temp Pulse Resp BP Pulse Ox 98.1 F 86 20 144/73 99 11/04/17 07:59 11/04/17 07:59 11/04/17 07:59 11/04/17 07:59 11/04/17 07:59 Intake and Output: 11/04/17 11/05/17 18:59 06:59 Intake Total 225 Balance 225 - Medications Medications: Current Medications Aspirin (Ecotrin) 81 mg PO DAILY [facility] Last Admin: 11/04/17 10:39 Dose: Not Given Ceftriaxone Sodium 1 gm/ (Sodium Chloride) 100 mls @ 100 mls/hr IVPB DAILY [facility] Last Admin: 11/04/17 10:40 Dose: Not Given Insulin Glargine (Lantus) 10 unit SC [facility] Last Admin: 11/03/17 21:45 Dose: Not Given Insulin Human Regular (Novolin R) 0 unit SC [facility] PRN Reason: Protocol Last Admin: 11/04/17 16:47 Dose: 4 unit Losartan Potassium (Cozaar) 50 mg PO DAILY [facility] Last Admin: 11/04/17 10:39 Dose: Not Given Metoprolol Tartrate (Lopressor) 25 mg PO BID [facility] Last Admin: 11/04/17 18:46 Dose: Not Given Pantoprazole Sodium (Protonix Ec Tab) 40 mg PO DAILY [facility] Last Admin: 11/04/17 10:39 Dose: Not Given Rosuvastatin Calcium (Crestor) 20 mg PO HS [facility] Last Admin: 11/03/17 21:45 Dose: 20 mg - Labs Labs: 11/04/17 07:33 11/04/17 07:33 PT 10.0 SECONDS (9.7-12.2) 10/31/17 12:32 INR 0.9 10/31/17 12:32 APTT 50 SECONDS (21-34) H D 11/03/17 08:05
[2017-11-04] MEDS ORDERED: Sodium Chloride 0.9% 1,000 ML IV SCH (19:15)
[2017-11-04] MEDS ORDERED: Enoxaparin 60 mg Syringe SC SCH (20:00)
[2017-11-04] MEDS: (Lantus) Insulin Glargine, Recombinant SC SCH (21:48)
--- NOTE | 2017-11-05 07:36 | CP.PCM.DIS ---
Provider - Provider Date of Admission: 11/01/17 21:46 Attending physician: Stephanie Torres DO Time Spent in preparation of Discharge (in minutes): 55 Hospital Course - Lab Results Lab Results: Micro Results 11/02/17 20:30 Blood Blood Culture - Preliminary NO GROWTH AFTER 48 HOURS 11/02/17 21:00 Blood Blood Culture - Preliminary NO GROWTH AFTER 48 HOURS 11/03/17 08:10 Urine Urine Culture - Preliminary Gram Negative Yomi Most Recent Lab Values WBC 7.9 K/uL (4.8-10.8) 11/04/17 07:33 RBC 4.00 Mil/uL (3.80-5.20) 11/04/17 07:33 Hgb 13.3 g/dL (11.0-16.0) 11/04/17 07:33 Hct 39.2 % (34.0-47.0) 11/04/17 07:33 MCV 97.8 fL (81.0-99.0) 11/04/17 07:33 MCH 33.2 pg (27.0-31.0) H 11/04/17 07:33 MCHC 33.9 g/dL (33.0-37.0) 11/04/17 07:33 RDW 14.9 % (11.5-14.5) H 11/04/17 07:33 Plt Count 275 K/uL (130-400) 11/04/17 07:33 MPV 8.4 fL (7.2-11.7) 11/04/17 07:33 Neut % (Auto) 78.1 % (50.0-75.0) H 11/04/17 07:33 Lymph % (Auto) 11.6 % (20.0-40.0) L 11/04/17 07:33 [place] % (Auto) 7.2 % (0.0-10.0) 11/04/17 07:33 Eos % (Auto) 2.8 % (0.0-4.0) 11/04/17 07:33 Baso % (Auto) 0.3 % (0.0-2.0) 11/04/17 07:33 Neut # 6.1 K/uL (1.8-7.0) 11/04/17 07:33 Lymph # 0.9 K/uL (1.0-4.3) L 11/04/17 07:33 [place] # 0.6 K/uL (0.0-0.8) 11/04/17 07:33 Eos # 0.2 K/uL (0.0-0.7) 11/04/17 07:33 Baso # 0.0 K/uL (0.0-0.2) 11/04/17 07:33 Neutrophils % (Manual) 93 % (50-75) H 11/03/17 08:05 Band Neutrophils % 1 % (0-2) 11/03/17 08:05 Lymphocytes % (Manual) 2 % (20-40) L 11/03/17 08:05 Monocytes % (Manual) 4 % (0-10) 11/03/17 08:05 Eosinophils % (Manual) 4 % (0-4) 10/31/17 12:32 Platelet Estimate Normal (NORMAL) 11/03/17 08:05 RBC Morphology Normal 11/03/17 08:05 Anisocytosis (manual) Slight 10/31/17 12:32 PT 10.0 SECONDS (9.7-12.2) 10/31/17 12:32 INR 0.9 10/31/17 12:32 APTT 50 SECONDS (21-34) H D 11/03/17 08:05 D-Dimer, Quantitative 1853 ng/mlDDU (0-243) H 10/31/17 19:46 Sodium 139 mmol/L (132-148) 11/04/17 07:33 Potassium 4.2 mmol/L (3.6-5.2) 11/04/17 07:33 Chloride 106 mmol/L (98-107) 11/04/17 07:33 Carbon Dioxide 25 mmol/L (22-30) 11/04/17 07:33 Anion Gap 11 (10-20) 11/04/17 07:33 BUN 17 mg/dL (7-17) 11/04/17 07:33 Creatinine 0.9 mg/dL (0.7-1.2) 11/04/17 07:33 Est GFR ( Amer) > 60 11/04/17 07:33 Est GFR (Non-Af Amer) > 60 11/04/17 07:33 POC Glucose (mg/dL) 242 mg/dL (65-110) H 11/05/17 06:21 Random Glucose 260 mg/dL (65-105) H 11/04/17 07:33 Hemoglobin A1c 10.0 % (4.2-6.5) H 11/01/17 05:33 Calcium 9.1 mg/dl (8.6-10.4) 11/04/17 07:33 Phosphorus 3.2 mg/dL (2.5-4.5) 11/03/17 08:05 Magnesium 1.6 mg/dL (1.6-2.3) 11/03/17 08:05 Total Bilirubin 0.3 mg/dL (0.2-1.3) 11/04/17 07:33 AST 20 U/L (14-36) 11/04/17 07:33 ALT 38 U/L (9-52) 11/04/17 07:33 Alkaline Phosphatase 63 U/L (38-126) 11/04/17 07:33 Total Creatine Kinase 26 U/L (30-135) L 11/03/17 03:42 CK-MB (Mass) 0.77 ng/mL (0.0-3.38) 11/03/17 03:42 Troponin I 0.2540 ng/mL (0.00-0.120) H* 11/03/17 03:42 Total Protein 5.6 g/dL (6.3-8.3) L 11/04/17 07:33 Albumin 3.0 g/dL (3.5-5.0) L 11/04/17 07:33 Globulin 2.6 gm/dL (2.2-3.9) 11/04/17 07:33 Albumin/Globulin Ratio 1.1 (1.0-2.1) 11/04/17 07:33 Triglycerides 98 mg/dL (0-149) D 11/01/17 05:33 Cholesterol 134 mg/dL (0-199) 11/01/17 05:33 LDL Cholesterol Direct 68 mg/dL (0-129) 11/01/17 05:33 HDL Cholesterol 41 mg/dL (30-70) 11/01/17 05:33 Procalcitonin 0.63 NG/ML (0.19-0.49) H 11/03/17 19:55 Free T4 1.54 ng/dL (0.78-2.19) 11/02/17 15:23 TSH 3rd Generation 0.92 mIU/L (0.46-4.68) 11/02/17 15:23 Urine Color Yellow (YELLOW) 11/03/17 11:07 Urine Clarity Hazy (Clear) 11/03/17 11:07 Urine pH 6.0 (5.0-8.0) 11/03/17 11:07 Ur Specific [place] 1.006 (1.003-1.030) 11/03/17 11:07 Urine Protein Negative mg/dL (NEGATIVE) 11/03/17 11:07 Urine Glucose (UA) Normal mg/dL (Normal) 11/03/17 11:07 Urine Ketones Trace mg/dL (NEGATIVE) 11/03/17 11:07 Urine Blood Negative (NEGATIVE) 11/03/17 11:07 Urine Nitrate Negative (NEGATIVE) 11/03/17 11:07 Urine Bilirubin Negative (NEGATIVE) 11/03/17 11:07 Urine Urobilinogen Normal mg/dL (0.2-1.0) 11/03/17 11:07 Ur Leukocyte Esterase 1+ Kranthi/uL (Negative) H 11/03/17 11:07 Urine WBC (Auto) 11 /hpf (0-5) H 11/03/17 11:07 Urine RBC (Auto) < 1 /hpf (0-3) 11/03/17 11:07 Ur Squamous Epith Cells < 1 /hpf (0-5) 11/03/17 11:07 - Hospital Course Hospital Course: Upon Admission: cc: "i passed out" HPI: Patient is an 82 year old female with PMHx of uncontrolled DM, hypertension , hyperlipidemia presenting to the hospital after being brought in by ambulance for altered mental status. The patient states that the history she knows comes from her friend. She says that her friend came to visit her in the senior citizen building that she lives in, as she normally does every day, and found that she was unconscious. Patient states she does not recall how she ended up there. Her last memory was of the EMS coming to pick her up and taking her to the hospital. As per EMS, she appeared to be altered. She was given an amp of D50 and a fluid bolus and she returned to what appeared to be a normal mental status. Patient states that she takes Lantus at night, as well as insulin prior to meals. She says she takes about 15U of Lantus every night, and uses a sliding scale for her insulin prior to meals. She recalls taking 8U of insulin this AM, but does not recall what her blood glucose was this AM. She also recalls eating a bagel this morning. She states she took Atorvastatin and Januvia as well. She states she does not take any other medications. She is able to recall the day of the week, month, her name and her current location, but does not recall the year. PMD: Dr. Jon PMHx: As stated above PSHx: None Allergies: NKDA Fam hx: noncontributory Social hx: Denies smoking, alcohol, drug history. Lives alone at a senior citizen housing. No children, unmarried. Throughout Hospital Course: Patient was admitted for Syncope. Head CT, carotid dopplers - were WNL. EKG: NSR with premature atrial complexes. Echo: LVEF 78%, Aortic valve is mildly sclerotic, mild annular calcification, mild TR, mild pulm regurg. Stress test from 06/2017 was normal. CTA: no PE. Patient underwent Cardiac Cath: Non obstructive coronaries, Normal EF- continue with medical management. Patient found to have a UTI, was started on IV rocephin and discharged to [facility] with PO abx. Patient discharged with Lantus 12units SC QHS, Novolog 6 units SC AC for uncontrolled diabetes with A1C of 10. Patient instructed to monitor her diet and to only take the dose of insulin prescribed. This is a brief summary of the patient's hospital course, please review EMR for full record. Discharge Exam - Head Exam Head Exam: ATRAUMATIC, NORMAL INSPECTION - Additional Findings Additional findings: - Constitutional Appears: No Acute Distress - Head Exam Head Exam: ATRAUMATIC, NORMAL INSPECTION - Eye Exam Eye Exam: EOMI, Normal appearance - ENT Exam ENT Exam: Mucous Membranes Moist - Respiratory Exam Respiratory Exam: Clear to Ausculation Bilateral, NORMAL BREATHING PATTERN. absent: Rales, Rhonchi, Wheezes, Respiratory Distress - Cardiovascular Exam Cardiovascular Exam: REGULAR RHYTHM, +S1, +S2 - GI/Abdominal Exam GI & Abdominal Exam: Soft, Normal Bowel Sounds. absent: Distended, Firm, Guarding, Tenderness - Extremities Exam Extremities Exam: Normal Inspection - Neurological Exam Neurological Exam: Alert, Awake, Oriented x3 - Psychiatric Exam Psychiatric exam: Normal Affect, Normal Mood - Skin Skin Exam: Dry, Intact, Normal Color, Warm Discharge Plan - Discharge Medications Prescriptions: Ciprofloxacin HCl [Cipro] 500 mg PO BID #8 tab Insulin Aspart, Recombinant [Novolog] 6 unit SC AC #1 vial Insulin Glargine, Recombina [Lantus] 12 unit SC HS #1 vial - Follow Up Plan Condition: STABLE Disposition: REHAB FACILITY/REHAB UNIT Instructions: Syncope (DC), Syncope (GEN)
[2017-11-05] MEDS: (Novolin R) Insulin Human Regular 100 units/ml vial SC SCH ×2 (07:51→13:51)
[2017-11-05 08:07] VITALS: BP 151/72; PULSE 78; RESP 18; TEMP 98.1; O2SAT 96
[2017-11-05 08:13] LABS: BASO % 0.5 % (0.0-2.0); EOS # 0.2 K/uL (0.0-0.7); EOS % 3.1 % (0.0-4.0); HEMATOCRIT 39.3 % (34.0-47.0); LYMPH # 0.8 K/uL (1.0-4.3); LYMPH % 11.1 % (20.0-40.0); MEAN CELL VOLUME 97.6 fL (81.0-99.0); MEAN CORPUSCULAR HEMOGLOBIN 32.4 pg (27.0-31.0); MEAN CORPUSCULAR HGB CONC 33.1 g/dL (33.0-37.0); MEAN PLATELET VOLUME 8.3 fL (7.2-11.7); MONO # 0.6 K/uL (0.0-0.8); MONO % 7.8 % (0.0-10.0); WHITE BLOOD COUNT 7.4 K/uL (4.8-10.8)
[2017-11-05 09:04] LABS: ALB/GLOB RATIO 1.1 (1.0-2.1); ALKALINE PHOSPHATASE 56 U/L (38-126); ALT/SGPT 39 U/L (9-52); AST/SGOT 24 U/L (14-36); BILIRUBIN,TOTAL 0.4 mg/dL (0.2-1.3); BLOOD UREA NITROGEN 11 mg/dL (7-17); CARBON DIOXIDE 27 mmol/L (22-30); CHLORIDE 107 mmol/L (98-107); GFR AFRICAN-AMERICAN > 60; GLUCOSE,RANDOM 227 mg/dL (65-105); MAGNESIUM 1.6 mg/dL (1.6-2.3); PHOSPHOROUS 2.9 mg/dL (2.5-4.5); POTASSIUM 3.8 mmol/L (3.6-5.2); SODIUM 141 mmol/L (132-148); TOTAL PROTEIN 5.6 g/dL (6.3-8.3)
[2017-11-05] MEDS: Pantoprazole 40 mg EC Tab PO SCH (09:21)
[2017-11-05] MEDS ORDERED: Enoxaparin 40 mg Syringe SC SCH (10:00)
--- NOTE | 2017-11-05 22:55 | CARD ---
APPROVED REPORT EKG Measurement Heart [id number] <Conclusion> Sinus rhythm with premature atrial complexes Otherwise normal ECG
--- NOTE | 2017-11-07 19:18 | CARD ---
APPROVED REPORT EKG Measurement Heart [id number] [place] 146P4 [id number] <Conclusion> Normal sinus rhythm Normal ECG
--- NOTE | 2017-11-07 19:19 | CARD ---
APPROVED REPORT EKG Measurement Heart [id number] [place] 150P55 [id number] <Conclusion> Sinus tachycardia Otherwise normal ECG
--- NOTE | 2017-11-13 16:03 | CARDCATH ---
PROCEDURE DATE: 11/04/2017 PROCEDURES: 1. Left heart catheterization. 2. Coronary angiogram. 3. Radiological supervision and radiological interpretation of the left heart catheterization and coronary angiogram. REFERRING PHYSICIANS: 1. Dr. Stephanie Torres. 2. Dr. Ramon Canada. PERFORMING PHYSICIAN: Dr. Hunter Morgan. CLINICAL INDICATIONS: 1. Angina. 2. Abnormal troponin. 3. Tachycardia. 4. Hyperlipidemia. 5. Hypertension. PROCEDURE: After informed consent, the patient was prepped and draped in the usual sterile fashion. A 2% lidocaine was given in the right groin for local anesthesia. Using micropuncture technique, 6-Tongan sheath was introduced into right common femoral artery. Left main coronary artery engaged using JL4 6-Tongan diagnostic catheter. Contrast injected and left coronary angiogram was performed. Right coronary artery was engaged using JR4 6-Tongan diagnostic catheter. Contrast injected and right coronary angiogram was performed. JR4 diagnostic catheter crossed into left ventricle across the aortic valve. LV end diastolic pressure measured. Contrast injected and the LV angiogram was performed. The catheter was pulled back across the aortic valve. Gradient across the aortic valve was measured. The patient tolerated the procedure well. FINDINGS: 1. Left main coronary artery is patent. 2. LAD and diagonal branches are patent. 3. Distal left circumflex has a 50% stenosis . This is a nonobstructive lesion. 4. Right coronary artery is dominant and patent. 5. LV ejection fractions is approximately 60%. No wall motion abnormality is noted. EDP is 18. There is no gradient across the aortic valve. IMPRESSION: 1. 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 2. Normal left ventricular systolic function. PLAN: Recommend medical management. Hunter Morgan MD
== END 2017-11-05 15:53 | DRG 286 ==
LOC: C.ER 12:15 → C.9E 14:30 → C.5S 16:30 → OBSVTOIN 11-01 21:46 → C.5S 11-04 01:16
PROVIDERS: ADMIT Hospitalist; ATTEND Hospitalist
PROC: 4A023N7 Measurement of Cardiac Sampling and Pressure, Left Heart, Percutaneous Approach (ICD-10-PCS; principal; 2017-11-01)
PROC: B2151ZZ Fluoroscopy of Left Heart using Low Osmolar Contrast (ICD-10-PCS; 2017-11-01)
PROC: B2111ZZ Fluoroscopy of Multiple Coronary Arteries using Low Osmolar Contrast (ICD-10-PCS; 2017-11-01)
DX: I49.1 Atrial premature depolarization (principal); G93.40 Encephalopathy, unspecified; E11.65 Type 2 diabetes mellitus with hyperglycemia; E11.649 Type 2 diabetes mellitus with hypoglycemia without coma; N39.0 Urinary tract infection, site not specified; I10 Essential (primary) hypertension; E78.5 Hyperlipidemia, unspecified; Z79.4 Long term (current) use of insulin; I25.119 Atherosclerotic heart disease of native coronary artery with unspecified angina pectoris

== ENCOUNTER 2018-06-05 23:10 | Emergency (ER) | payer OTHER ==
[2018-06-05 23:10] VITALS: BMI 20.1
--- NOTE | 2018-06-05 23:51 | C.PDOC ---
History Of Present Illness pt randomly checked her blood pressure and it was high , at home,. No chest pain , visual changes, dizziness, slurred speech. Got very anxious and wanted to her bp rechecked. Time Seen by Provider: 06/05/18 23:51 Chief Complaint (Nursing): High Blood Pressure History Per: Patient History/Exam Limitations: no limitations Onset/Duration Of Symptoms: Hrs Current Symptoms Are (Timing): Gone Associated Symptoms: denies: Chest Pain, Dyspnea, Dizziness, Blurred Vision, Focal Weakness, Headache Quality Of Symptoms: Asymptomatic Severity: None Exacerbating Factor(s): Pos: None Recent travel outside of the [place]: No Additional History Per: Patient Past Medical History Reviewed: Historical Data, Nursing Documentation, Vital Signs Vital Signs: Last Vital Signs Temp 98.2 F 06/06/18 00:45 Pulse 67 06/06/18 00:45 Resp 18 06/06/18 00:45 BP 145/60 06/06/18 00:45 Pulse Ox 96 06/06/18 00:45 - Medical History PMH: HTN, Hypercholesterolemia Denies: Chronic Kidney Disease - [facility] Procedures FLUOROSCOPY OF LEFT HEART USING LOW OSMOLAR CONTRAST (11/01/17) FLUOROSCOPY OF MULT COR ART USING L OSM CONTRAST (11/01/17) MEASURE OF CARDIAC SAMPL & PRESSURE, L HEART, PERC APPROACH (11/01/17) Family History: States: No Known Family Hx - Social History Hx Alcohol Use: No Hx Substance Use: No - Immunization History Hx Tetanus Toxoid Vaccination: No Hx Influenza Vaccination: No Hx Pneumococcal Vaccination: No Review Of Systems Constitutional: Negative for: Fever, Chills Eyes: Negative for: Redness ENT: Negative for: Throat Pain Cardiovascular: Negative for: Chest Pain Respiratory: Negative for: Shortness of Breath Gastrointestinal: Negative for: Nausea, Vomiting, Abdominal Pain Genitourinary: Negative for: Dysuria Musculoskeletal: Negative for: Back Pain Skin: Negative for: Rash Neurological: Negative for: Weakness Psych: Positive for: Anxiety Physical Exam - Physical Exam Appears: Non-toxic, No Acute Distress Skin: Warm, Dry Head: Normacephalic Eye(s): bilateral: Normal Inspection Oral Mucosa: Moist Neck: Supple Chest: Symmetrical Cardiovascular: Rhythm Regular Respiratory: No Rales, No Rhonchi, No Wheezing Gastrointestinal/Abdominal: Soft, No Tenderness, No Distention Back: Normal Inspection Extremity: Normal ROM Neurological/Psych: Oriented x3, Normal Speech, Normal Cognition, Normal Motor, Normal Sensation Gait: Steady ED Course And Treatment O2 Sat by Pulse Oximetry: 98 Pulse Ox Interpretation: Normal Disposition Counseled Patient/Family Regarding: Studies Performed, Diagnosis, Need For Followup - Disposition Referrals: Ramon Canada MD [Staff Provider] - Disposition: HOME/ ROUTINE Disposition Time: 23:51 Condition: FAIR Additional Instructions: Please return if symptoms recur Instructions: High Blood Pressure in Adults Forms: [facility] (Indonesian) - Clinical Impression Clinical Impression: Hypertension
[2018-06-06 00:47] VITALS: BP 145/60; PULSE 67; RESP 18; TEMP 98.2
[2018-06-06 00:55] VITALS: O2SAT 98
== END 2018-06-06 00:47 | disposition home or self-care (01) ==
LOC: C.ER 23:10
DX: I10 Essential (primary) hypertension (principal); E78.00 Pure hypercholesterolemia, unspecified